=== PATIENT | female | born 1995 | race Caucasian/White ===

== ENCOUNTER 2023-07-19 13:35 | Outpatient (AMB) | payer OTHER, SELFPAY ==
--- NOTE | 2023-07-19 13:40 | MHC.PC.OV ---
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: No Accompanied by: Self / Same As Patient Allergies No Known Allergies Allergy (Verified 07/19/23 14:30) Medication List - Last Reconciled 07/19/23 by Robinson Banerjee MD No Known Home Meds Tobacco use date assessed: 07/19/23 Dental Screening Dental Screen Date: 07/19/23 Did you have a dental visit in the last 12 months?: Yes Did you have a dental problem in the last 6 months where you did not have access to dental care?: No Was dental information given to patient?: Patient has dentist HPI Pipe Turner Request PE / Anxiety HPI Details Patient comes in today for her annual physical examination and to establish care - is a new patient to the practice States that she has a history of anxiety and was on some Rx in the past; is requesting for a referral to psychiatry so she can get back on some Rx for her anxiety - recalls that she was seeing a psychiatry Rx prescriber before Relates that she has been off her psychiatry meds for a while Recalls that she was on Sertraline and Hydroxyzine in the past but they did not really help with her symptoms and she stopped taking her Rx when she got a few years ago Relates (+) strong family Hx of anxiety and psychiatric issues (schizophrenia, bipolar depression) She has also noticed some dark spots on her skin all over but notes that they are especially more prominent on her hands/fingers and toes - would like to get checked out for skin cancer by dermatology, as she also reports (+) family Hx of skin cancer She denies any headaches or dizziness Denies any chest pains, no SOB No nausea/vomiting, no abdominal pain No change in bowel habits noted Denies any acute urinary symptoms PFSH Medical History (Updated 08/23/23 @ 01:37 by Robinson Banerjee MD) Allergic rhinitis Morbid obesity with BMI of 50.0-59.9, adult Anxiety Surgical History (Updated 08/23/23 @ 01:28 by Robinson Banerjee MD) No pertinent past surgical history Family History Other Brain cancer Diabetes FH: mental illness Hypertension Skin cancer Substance abuse Social History Housing: House Patient Tobacco Use Status: Former Tobacco user e-Cigarette/Vaping Use: Currently Using service: No Current occupational status: employed and unemployed Current occupational exposures/hazards: No Cognitive needs: No Hearing needs: No Vision needs: No Questionnaire PHQ-9 Over the last 2 weeks, how often have you been bothered by any of the following problems? 1. Little interest or pleasure in doing things: several days 2. Feeling down, depressed, or hopeless: several days 3. Trouble falling or staying asleep, or sleeping too much: nearly every day 4. Feeling tired or having little energy: nearly every day 5. Poor appetite or overeating: not at all 6. Feeling bad about yourself - or that you are a failure or have let yourself or your family down: nearly every day 7. Trouble concentrating on things, such as reading the newspaper or watching television: nearly every day 8. Moving or speaking so slowly that other people could have noticed. Or the opposite - being so fidgety or restless that you have been moving around a lot more than usual: nearly every day 9. Thoughts that you would be better off or of hurting yourself in some way: not at all Total score: 17 Depression Screening Interpretation: Positive Depression Screening Follow-up: Existing condition, New Medication prescribed, Community Mental Health Worker F/U and Follow-up Visit Requested Depression Screening Done: Yes [id number] - PHQ-9 Billing: Yes Source: Developed by Drs. Boris Graf, Manisha Cardenas, Devon Cobian and colleagues, with an educational bambi from [employer]. Thrive Questionnaire Date Thrive assessed: 07/19/23 I am a: Patient What is your living situation today?: I have a steady place to live Within the past 12 months, did the food you bought not last and you didn't have the money to get more?: Never true Within the past 12 months, did you worry whether your food would run out before you got money to buy more?: Never true Do you have trouble paying for medicines?: No Do you have trouble getting transportation to medical appointments?: No Do you have trouble paying your heating and electricity bill?: No Do you have trouble taking care of your child, family member or friend?: No Do you have trouble with day-to-day activities such as bathing, preparing meals, shopping, managing finances, etc.?: No Are you currently unemployed and looking for a job?: No Are you interested in more education?: No Please select the resources that you would like help with: None Currently or been in a relationship where the following occur: no concerns reported AUDIT C Alcohol Use Questionnaire (AUDIT-C) 1. How often do you have a drink containing alcohol?: Never 3. How often do you have six or more drinks on one occasion?: Never Total Score: 0 Score Reviewed/Action Taken: Yes TAWNY-7 AMB Questionnaire TAWNY-7 Date TAWNY - 7 assessed: 07/19/23 Feeling nervous, anxious, or on edge: 3 = Nearly every day Not being able to stop or control worryin = Not at all Worrying too much about different things: 0 = Not at all Trouble relaxin = Nearly every day Being so restless that it is hard to sit still: 3 = Nearly every day Becoming easily annoyed or irritable: 3 = Nearly every day Feeling afraid as if something awful might happen: 0 = Not at all Total TAWNY-7 score (0-4 normal; 5-9 mild; 10-14 moderate; 15-21 severe): 12 Source: Developed by Drs. Boris Graf, Manisha Cardenas, Devon Cobian and colleagues, with an educational bambi from [employer]. Review of Systems Const Denies chills, Denies fatigue, Denies fever(s), Denies headache(s) and Denies malaise Eyes Denies blurry vision, Denies change in vision, Denies irritation and Denies itchy eyes ENT Denies dysphagia, Denies dizziness, Denies otalgia, Denies headache(s), Denies nasal congestion, Reports nasal discharge (occasional, clear), Denies neck pain, Denies odynophagia, Denies sinus pain and Denies sore throat Card Denies chest pain, Denies rapid heart rate, Denies irregular heart rhythm, Denies palpitations and Denies dyspnea Resp Denies chest congestion, Denies cough, Denies dyspnea and Denies wheezing GI Denies abdominal pain, Denies bloating, Denies constipation, Denies dysphagia, Denies heartburn, Denies diarrhea, Denies nausea, Denies odynophagia and Denies vomiting Denies hematuria, Denies urinary frequency, Denies dysuria, Denies urinary incontinence and Denies urinary urgency Musc Denies back pain, Denies arthralgias, Denies joint swelling, Denies muscle weakness and Denies neck pain Skin/Breast Denies breast pain, Denies breast mass, Denies change in pigmentation, Reports lesions ((+) multiple scattered dark lesions on her skin - see HPI), Denies rash and Denies unusual bruising Neuro Denies dizziness, Denies headache(s) and Denies paresthesias Psych Reports anxiety (increasing) and Reports depression Endo Denies fatigue and Denies palpitations Amado/Lymph Denies easy bruising Aller/Immun Denies itchy eyes, Reports seasonal rhinorrhea and Denies wheezing Physical exam (Primary Care) Vital Signs: Last Vital Signs Pulse 106 H 07/19/23 13:42 BP 132/88 07/19/23 13:42 Pulse Ox 98 07/19/23 13:42 Oxygen Delivery Method Room Air 07/19/23 13:42 BMI result Body Mass Index 57.9 Tobacco/Smoking Status: Tobacco use Status Tobacco use date assessed 07/19/23 07/19/23 13:56 Patient Tobacco Use Status Former Tobacco user 07/19/23 13:56 e-Cigarette/Vaping Use Currently Using 07/19/23 13:56 PHQ-9: PHQ-9 Score PHQ-9: Total score 17 07/19/23 14:32 Depression Screening Interpretation: Positive Depression Screening Follow-up: Existing condition, New Medication prescribed, Community Mental Health Worker F/U and Follow-up Visit Requested Thrive Assessment: Date of Thrive Assessment Date Thrive assessed 07/19/23 07/19/23 13:56 Currently or been in a relationship where the following occur: no concerns reported Const General: no acute distress, alert and awake Orientation/consciousness: patient oriented x3 HENMT Head: Yes normocephalic and Yes atraumatic Ears: external ears normal, TM's normal bilaterally and EAC's normal General nose exam: No nasal discharge present Face and sinus: Yes normal facial exam and Yes sinuses nontender Teeth and gingiva: dentition normal Throat: Yes posterior oropharynx normal and Yes tonsils normal (no TP congestion) Eyes Eyelids: Yes eyelids normal Conjunctivae: conjunctivae normal Pupils: Equal, round and reactive pupils present EOM: EOMs intact bilaterally Neck Neck: Yes no lymphadenopathy and Yes supple Thyroid: Thyroid normal Resp Auscultation: clear to auscultation bilaterally, no rales and no wheezes Cardio Rate: regular rate Rhythm: regular rhythm Heart sounds: no murmurs GI Palpation (GI): Soft to palpation, nontender and No hepatosplenomegaly present Auscultation: normal bowel sounds General: Yes no CVA tenderness Back/Spine/Pelvis Back: no CVA tenderness Thoracic/Lumbar Spine: thoracic and lumbar spine normal to inspection Skin Other: (+) multiple scattered hyperpigmented skin lesions that are more prominent/numerous on her hands and digits Rashes: no rashes Neuro General: patient oriented x3, moves all extremities, no focal motor deficits and CN's II-XI intact bilaterally Cranial nerves: Yes Equal, round and reactive pupils present Cognition (Neuro): normal cognition Gait exam (Neuro): Normal gait present Extrem General: Yes no clubbing, cyanosis or edema Assessment and Plan Assessment & Plan (1) Annual physical exam: Code(s): Z00.00 - Encounter for general adult medical examination without abnormal findings Plan: Check labs (2) Allergic rhinitis: Code(s): J30.9 - Allergic rhinitis, unspecified Qualifiers: Allergic rhinitis trigger: unspecified Allergic rhinitis seasonality: unspecified Qualified Code(s): J30.9 - Allergic rhinitis, unspecified Plan: Will start her on Cetirizine 10 mg QD PRN (3) Hyperpigmented skin lesion: Code(s): L81.9 - Disorder of pigmentation, unspecified Plan: Will refer her to dermatology for further evaluation and management (4) Anxiety: Code(s): F41.9 - Anxiety disorder, unspecified Plan: Will refer her to psychiatry for further evaluation and management Will start her in the meantime on a trial of Bupropion XL 150 mg QD - advised that this may help in the meantime as we currently do not know how long it will take before psychiatry can see her and start prescribing and managing her Rx (5) Morbid obesity with BMI of 50.0-59.9, adult: Code(s): E66.01 - Morbid (severe) obesity due to excess calories; Z68.43 - Body mass index [BMI] 50.0-59.9, adult Plan: Discussed diet/exercise as tolerated/lose weight (6) Cervical cancer screening: Code(s): Z12.4 - Encounter for screening for malignant neoplasm of cervix Plan: Will refer her to OB-Exhaust Worker for her annual pap smear and string studies director exam, as it has been a few years now since she's had her annual exam done Plan Follow up in 4 month Orders: Orders Comprehensive Met. Panel 07/19/23 Z00.00 - Encounter for general adult medical examination without abnormal findings, E66.01 - Morbid (severe) obesity due to excess calories, Z68.43 - Body mass index [BMI] 50.0-59.9, adult UA CC w/rflx Micro + Cult 07/19/23 R30.0 - Dysuria, Z00.00 - Encounter for general adult medical examination without abnormal findings, E66.01 - Morbid (severe) obesity due to excess calories, Z68.43 - Body mass index [BMI] 50.0-59.9, adult Vitamin D 25-OH Total 07/19/23 E55.9 - Vitamin D deficiency, unspecified, Z00.00 - Encounter for general adult medical examination without abnormal findings, E66.01 - Morbid (severe) obesity due to excess calories, Z68.43 - Body mass index [BMI] 50.0-59.9, adult Complete Blood Count Auto Diff 07/19/23 Z00.00 - Encounter for general adult medical examination without abnormal findings, E66.01 - Morbid (severe) obesity due to excess calories, Z68.43 - Body mass index [BMI] 50.0-59.9, adult TSH reflex Free T4 07/19/23 Z00.00 - Encounter for general adult medical examination without abnormal findings, E66.01 - Morbid (severe) obesity due to excess calories, Z68.43 - Body mass index [BMI] 50.0-59.9, adult Referrals DIRECTOR CARDIAC Referral Z12.4 - Encounter for screening for malignant neoplasm of cervix Psychiatry Referral F41.9 - Anxiety disorder, unspecified Dermatology Referral L81.9 - Disorder of pigmentation, unspecified Medications: New bupropion HCl (Wellbutrin XL) 150 mg PO QAM 30 tabs 3RF 30 days cetirizine 10 mg PO DAILY PRN 90 tabs 3RF allergy symptoms 90 days Coding Level of Care Code New Pt Prev Care 18-39yr([address]211 Diagnoses Annual physical exam Z00.00 Allergic rhinitis, unspecified seasonality, unspecified trigger J30.9 Allergic rhinitis trigger: unspecified Allergic rhinitis seasonality: unspecified Hyperpigmented skin lesion L81.9 Anxiety F41.9 Morbid obesity with BMI of 50.0-59.9, adult E66.01; Z68.43 Cervical cancer screening Z12.4
[2023-07-19 13:42] VITALS: BP 132/88; PULSE 106; O2SAT 98; BMI 57.9
== END 2023-07-19 14:45 | disposition home or self-care (01) ==
PROVIDERS: PCP Internal Medicine; Visit Provider Internal Medicine
DX: Z00.00 Encounter for general adult medical examination without abnormal findings (principal); F41.9 Anxiety disorder, unspecified; E66.01 Morbid (severe) obesity due to excess calories; Z68.43 Body mass index [BMI] 50.0-59.9, adult
CPT/HCPCS: 99385

== ENCOUNTER 2023-07-19 14:51 | Outpatient (REF) | payer OTHER, SELFPAY ==
[2023-07-19 15:11] LABS: MANUAL DIFF FLAG NO
[2023-07-19 15:16] LABS: Basophils Percent Auto 0.2 % (0-2); Eosinophils Absolute Auto 0.4 X10*3/uL (0.0-0.4); Eosinophils Percent Auto 4.7 % (0-4); Hematocrit 40.9 % (37.0-47.0); Hemoglobin 13.5 g/dl (12.0-16.0); Imm Gran Abs Auto 0.02 X10*3/uL (0.00-0.03); Imm Gran Pct Auto 0.2 % (0.0-0.4); Lymphocytes Absolute Auto 2.3 X10*3/uL (1.2-4.9); Lymphocytes Percent Auto 27.7 % (20-40); Mean Corpuscular Hemoglobin 26.9 pg (27.0-33.0); Mean Corpuscular Volume 81.5 fL (80.0-98.0); Mean Platelet Volume 9.8 fL (9.4-12.3); Monocytes Absolute Auto 0.3 X10*3/uL (0.1-1.2); Monocytes Percent Auto 3.8 % (2-11); Neutrophils Absolute Auto 5.3 x10*3/uL (2.0-8.3); Neutrophils Percent Auto 63.4 % (45-73); Platelet Count 211 X10*3/uL (160-400); Red Blood Count 5.02 X10*6/uL (4.20-5.50); Red Cell Distribution Width 14.4 % (11.0-16.0); White Blood Count 8.4 X10*3/uL (4.8-10.8)
[2023-07-19 15:44] LABS: Alanine Aminotransferase 42 U/L (0-31); Albumin Level 4.3 g/dL (3.5-5.0); Alkaline Phosphatase 55 U/L (39-117); Anion Gap 12 (12-20); Aspartate Amino Transferase 19 U/L (5-31); Bilirubin Total 0.7 mg/dL (0.0-1.0); Blood Urea Nitrogen 11 mg/dL (9-16); Calcium 9.8 mg/dL (8.4-10.2); Carbon Dioxide 25 mmol/L (22-29); Chloride 105 mmol/L (96-108); Estimated Glomerular Filt Rate > 60; Glucose Random 111 mg/dL (60-115); Potassium 4.1 mmol/L (3.3-5.1); Sodium 138 mmol/L (135-145); Total Protein 7.2 g/dL (6.5-8.0)
[2023-07-19 15:58] LABS: TSH reflex Free T4 3.79 uIU/mL (0.32-4.0); Vitamin D 25-OH Total 19.9 ng/mL (>30)
[2023-07-19 17:20] LABS: Appearance Urine Cloudy; Color Urine Yellow; Glucose Urine UA Negative (Negative); Leukocyte Esterase Urine Moderate (2+) (Negative); Nitrite Urine Negative (Negative); UMIC TRIGGER UACC YES; Urine Blood Negative (Negative); Urine Ketones Trace mg/dL (Negative); Urine Protein Negative (Neg-Trace)
[2023-07-19 18:03] LABS: Bacteria Urine 4+ (None Seen); Hyaline Casts Urine 0-2 /LPF (0-2); RBC Urine 0-2 /HPF (0-2); UACC Culture Trigger YES; WBC Urine 21-50 /HPF (0-5)
== END 2023-07-19 14:52 | disposition home or self-care (01) ==
LOC: HO.LAB 14:51
PROVIDERS: PCP Internal Medicine; Visit Provider Internal Medicine
DX: Z00.00 Encounter for general adult medical examination without abnormal findings (principal); E66.01 Morbid (severe) obesity due to excess calories; E55.9 Vitamin D deficiency, unspecified; Z68.43 Body mass index [BMI] 50.0-59.9, adult
CPT/HCPCS: 36415; 80053; 81001; 82306; 84443; 85025; 87086

== ENCOUNTER 2023-10-21 15:23 | Outpatient (REF) | payer OTHER, SELFPAY ==
[2023-10-28 23:29] LABS: HPV mRNA E6/E7 rflx Not Detected (Not Detected)
== END 2023-10-21 15:24 | disposition home or self-care (01) ==
LOC: HO.LNP 15:23
PROVIDERS: PCP Internal Medicine; Visit Provider Obstetrics & Gynecology
DX: Z01.419 Encounter for gynecological examination (general) (routine) without abnormal findings (principal); Z11.3 Encounter for screening for infections with a predominantly sexual mode of transmission; Z11.51 Encounter for screening for human papillomavirus (HPV); E66.01 Morbid (severe) obesity due to excess calories; Z68.43 Body mass index [BMI] 50.0-59.9, adult; Z71.3 Dietary counseling and surveillance
CPT/HCPCS: 87624; 88142; 99385

== ENCOUNTER 2023-10-21 15:23 | Outpatient (AMB) | payer OTHER, SELFPAY ==
--- NOTE | 2023-10-21 15:29 | MHC.OFFVIS ---
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 No complaints. Last Pap was within normal few years ago [facility] Medical History Allergic rhinitis Morbid obesity with BMI of 50.0-59.9, adult Anxiety Surgical History History of lumbar laminectomy for spinal cord decompression Hx of tonsillectomy No pertinent past surgical history Family History Other Brain cancer Diabetes FH: mental illness Hypertension Skin cancer Substance abuse Social History Housing: House Patient Tobacco Use Status: Former Tobacco user e-Cigarette/Vaping Use: Currently Using Substance Use Type: Marijuana service: No Current occupational status: employed and unemployed Current occupational exposures/hazards: No Cognitive needs: No Hearing needs: No Vision needs: No Female Reproductive History Menstrual Age of Menarche: 10 Duration of menses: 6-7 days Date of last menstrual period: 10/10/23 control method: progestin IUCD Total pregnancies: 1 Full term: 1 Number of Living Children: 1 Review of Systems Const All systems reviewed & are unremarkable except as noted in HPI and below Card Reports as per HPI Resp Reports as per HPI GI Reports as per HPI and Reports no additional complaints Reports as per HPI Physical Exam Vital Signs: BMI result Body Mass Index 53.7 Const General: cooperative, healthy appearing and comfortable Chest Chest palpation & inspection: normal inspection of the chest and normal palpation of entire chest wall Breast/axilla inspection: normal inspection of the breasts and normal inspection of the axillae Breast/axilla palpation: normal palpation of the breasts, normal palpation of the axillae and no axillary lymphadenopathy Resp Effort & Inspection: normal respiratory effort Auscultation: clear to auscultation bilaterally Percussion: percussion normal Cardio Palpation: normal PMI Rate: regular rate Rhythm: regular rhythm Heart sounds: no murmurs and no rubs Peripheral pulses: Peripheral pulses 2+ throughout GI Inspection: Yes normal to inspection Palpation (GI): Soft to palpation, nontender, no guarding, not rigid and No hepatosplenomegaly present Percussion: Yes normal to percussion Auscultation: normal bowel sounds Rectal Exam - Female: deferred General: Yes bladder normal to palpation External Female Exam: No lesion Speculum Exam - Vagina: normal appearance of the vagina, normal palpation, normal vaginal discharge and not erythematous Speculum Exam - Cervix: normal appearance of the cervix, normal palpation and Other cervical findings present (IUD string seen) Bimanual exam- vagina & uterus: normal bimanual exam, normal palpation, uterine size normal, bladder normal to palpation, consistency normal and normal palpation Bimanual Exam- Adnexa, other: normal adnexae, no masses and no tenderness Assessment & Plan Assessment & Plan (1) Well woman exam: Code(s): Z01.419 - Encounter for gynecological examination (general) (routine) without abnormal findings Plan: Co testing taken. Counseled the patient about the recommended dietary allowance of 1000 mg of Calcium & 600 IU of vitamin D. The patient was instructed to perform monthly self-breast exams , to call for any changes in menstrual patterns and to schedule an annual exam in a year; all questions answered and the patient verbalized understanding. Coding Level of Care Code New Pt Prev Care 18-39yr([id number] Diagnoses Well woman exam Z01.419
[2023-10-21 15:30] VITALS: BP 120/70; BMI 53.7
== END 2023-10-21 15:58 | disposition home or self-care (01) ==
LOC: HO.HWS 15:23
PROVIDERS: PCP Internal Medicine; Visit Provider Obstetrics & Gynecology
DX: Z01.419 Encounter for gynecological examination (general) (routine) without abnormal findings (principal)
CPT/HCPCS: 99385

== ENCOUNTER 2023-11-17 15:28 | Outpatient (AMB) | payer OTHER, SELFPAY ==
--- NOTE | 2023-11-17 15:30 | MHC.OFFVIS ---
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 Required: No Information Interpreted: non-clinical & clinical Motor Vehicle Licence Examiner: Motor Vehicle Licence Examiner Present (Isa PADRON) Accompanied by: Self / Same As Patient Allergies No Known Allergies Allergy (Verified 11/17/23 15:33) Is last menstrual period known: No (mirena) HPI Comments Details: Presenting complaining of vulvovaginal discharge associated with vulvar itching PFSH Medical History Allergic rhinitis Morbid obesity with BMI of 50.0-59.9, adult Anxiety Surgical History History of lumbar laminectomy for spinal cord decompression Hx of tonsillectomy No pertinent past surgical history Family History Other Brain cancer Diabetes FH: mental illness Hypertension Skin cancer Substance abuse Social History Housing: House Patient Tobacco Use Status: Former Tobacco user e-Cigarette/Vaping Use: Currently Using Substance Use Type: Marijuana service: No Current occupational status: employed and unemployed Current occupational exposures/hazards: No Cognitive needs: No Hearing needs: No Vision needs: No Female Reproductive History Menstrual Age of Menarche: 10 Review of Systems Const All systems reviewed & are unremarkable except as noted in HPI and below Physical Exam Vital Signs: BMI result Body Mass Index 53.4 General: Yes no CVA tenderness External Female Exam: normal external appearance and normal appearance of the urethra Speculum Exam - Vagina: normal appearance of the vagina, normal palpation, no lesions and no masses Speculum Exam - Cervix: normal appearance of the cervix, normal palpation, no lesions, no masses and nontender Bimanual exam- vagina & uterus: normal bimanual exam, normal palpation, uterine size normal, normal palpation, uterine shape normal, No Cervical tenderness present and non-tender Bimanual Exam- Adnexa, other: normal adnexae Back/Spine/Pelvis Back: no CVA tenderness Assessment & Plan Assessment & Plan (1) Vulvovaginitis: Code(s): N76.0 - Acute vaginitis Category: Medical Plan: GC/CT, Bacterial Vaginosis panel taken, Terazol 0.8% q.h.s. for 3 days and Lotrisone cream b.i.d. for 5 days was sent to the patient's pharmacy. The patient was instructed to call if symptoms don't improve in 48 hours. Orders: Orders CT NG by PCR Today N89.8 - Other specified noninflammatory disorders of vagina Bacterial Vaginosis Panel Today N89.8 - Other specified noninflammatory disorders of vagina Medications: New terconazole 0.8% 1 appful vaginal BEDTIME 3 days 20 grams 0RF clotrimazole-betamethasone 1-0.05 % 1 appl topical BID 5 days 45 grams 0RF Coding Level of Care Code Est Pt Level 3 (30236) Diagnoses Vulvovaginitis N76.0
[2023-11-17 15:31] VITALS: BMI 53.4
== END 2023-11-17 15:54 | disposition home or self-care (01) ==
PROVIDERS: PCP Internal Medicine; Visit Provider Obstetrics & Gynecology
DX: N76.0 Acute vaginitis (principal)
CPT/HCPCS: 99213

== ENCOUNTER 2023-11-17 15:28 | Outpatient (REF) | payer OTHER, SELFPAY ==
[2023-11-18 18:24] LABS: CT PCR NOT DETECTED (Not Detect.); NG PCR NOT DETECTED (Not Detect.)
[2023-11-19 10:59] LABS: BV Int Neg Control Negative (Negative); BV Int Pos Control Positive (Positive)
== END 2023-11-17 15:29 | disposition home or self-care (01) ==
LOC: HO.LNP 15:28
PROVIDERS: PCP Internal Medicine; Visit Provider Obstetrics & Gynecology
DX: N76.0 Acute vaginitis (principal)
CPT/HCPCS: 0353U; 87480; 87510; 87660; 99212

== ENCOUNTER 2023-11-22 15:49 | Outpatient (AMB) | payer OTHER, SELFPAY ==
--- NOTE | 2023-11-22 16:06 | A.OFFPC_ITS ---
Vital Signs 11/22/23 16:07 Height 5 ft 7.5 in Weight 330 lb 11.094 oz BMI 51.0 BP 110/68 Blood Pressure Location Lt brachial Position Sitting Pulse 69 Pulse Source Pulse Oximeter Pulse Oximetry (%) 99 Oxygen Delivery Method Room Air Intake Visit Reasons: anxiety Delivery Recruiter Required: No Accompanied by: Self / Same As Patient Allergies No Known Allergies Allergy (Verified 11/22/23 16:36) Medication List - Last Reconciled 11/22/23 by Robinson Banerjee MD bupropion HCl XL (Wellbutrin XL) 150 mg PO QAM 30 days cetirizine 10 mg PO DAILY PRN 90 days clotrimazole-betamethasone 1-0.05 % 1 appl topical BID 5 days levonorgestrel (Mirena) intrauterine saffron extract 2 to 4 tablets orally daily; terconazole 0.8% 1 appful vaginal BEDTIME 3 days Tobacco use date assessed: 07/19/23 Dental Screening Dental Screen Date: 07/19/23 HPI anxiety HPI Details Patient comes in today for her follow up visit Has been taking Saffron extract for weight loss - has lost about 45 pounds since last visit PFSH Medical History Allergic rhinitis Morbid obesity with BMI of 50.0-59.9, adult Anxiety Surgical History History of lumbar laminectomy for spinal cord decompression Hx of tonsillectomy No pertinent past surgical history Family History Other Brain cancer Diabetes FH: mental illness Hypertension Skin cancer Substance abuse Social History Housing: House Patient Tobacco Use Status: Former Tobacco user e-Cigarette/Vaping Use: Currently Using Substance Use Type: Marijuana service: No Current occupational status: employed and unemployed Current occupational exposures/hazards: No Cognitive needs: No Hearing needs: No Vision needs: No Female Reproductive History Menstrual Age of Menarche: 10 Questionnaire Thrive Questionnaire Date Thrive assessed: 07/19/23 TAWNY-7 AMB Questionnaire TAWNY-7 Date TAWNY - 7 assessed: 07/19/23 Source: Developed by Drs. Boris Graf, Manisha Cardenas, Devon Cobian and colleagues, with an educational bambi from [employer]. Physical exam (Primary Care) Vital Signs: Last Vital Signs Pulse 69 11/22/23 16:07 BP 110/68 11/22/23 16:07 Pulse Ox 99 11/22/23 16:07 Oxygen Delivery Method Room Air 11/22/23 16:07 BMI result Body Mass Index 51.0 Tobacco/Smoking Status: Tobacco use Status Tobacco use date assessed 07/19/23 11/22/23 16:07 Patient Tobacco Use Status Former Tobacco user 11/22/23 16:07 e-Cigarette/Vaping Use Currently Using 11/22/23 16:07 Thrive Assessment: Date of Thrive Assessment Date Thrive assessed 07/19/23 11/22/23 16:07 Results Reviewed Results Reviewed: Laboratory Tests 07/19/23 07/19/23 15:07 15:09 WBC 8.4 Hgb 13.5 Hct 40.9 Plt Count 211 Sodium 138 Potassium 4.1 Creatinine 0.82 Estimated GFR > 60 Random Glucose 111 Calcium 9.8 AST 19 ALT 42 H 25-OH Vitamin D Total 19.9 L TSH 3.79 Ur Specific [place] 1.020 Urine Protein Negative Urine Glucose (UA) Negative Urine Blood Negative Assessment and Plan Assessment & Plan Medications: New cholecalciferol (vitamin D3) 50 mcg PO DAILY 90 days 90 caps 3RF E55.9 - Vitamin D deficiency, unspecified On Hold bupropion HCl XL (Wellbutrin XL) Hold Comment: Doctor's Order 150 mg PO QAM 30 days 30 tabs 3RF Coding
--- NOTE | 2023-11-22 16:06 | MHC.PC.OV ---
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: No Accompanied by: Self / Same As Patient Allergies prednisone Allergy (Intermediate, Verified 08/25/24 17:00) Itching Medication List - Last Reconciled 11/22/23 by Robinson Banerjee MD bupropion HCl XL (Wellbutrin XL) 150 mg PO QAM 30 days cetirizine 10 mg PO DAILY PRN 90 days clotrimazole-betamethasone 1-0.05 % 1 appl topical BID 5 days levonorgestrel (Mirena) intrauterine saffron extract 2 to 4 tablets orally daily; terconazole 0.8% 1 appful vaginal BEDTIME 3 days Tobacco use date assessed: 07/19/23 Dental Screening Dental Screen Date: 07/19/23 HPI anxiety HPI Details Patient comes in today for her follow up visit States that she feels okay Admits that she did not take her Bupropion XL Rx and would like to wait until she sees Psychiatry before taking any other medications - relates having problems with multiple medications in the past, either due to intolerance or ineffectiveness She denies any headaches or dizziness Denies any chest pains, no shortness of breath No nausea/vomiting, no abdominal pain No change in bowel habits noted States that she has been taking some Saffron extract for weight loss recently and has already lost about 45 pounds since her last visit She had her follow-up labs done back in July 2023 and she would like to know how she did on these [facility] Medical History (Updated 08/26/24 @ 05:43 by Robinson Banerjee MD) ADHD (attention deficit hyperactivity disorder), combined type Vitamin D deficiency Reactive airway disease Morbid obesity with BMI of 45.0-49.9, adult Allergic rhinitis Anxiety Surgical History History of lumbar laminectomy for spinal cord decompression Hx of tonsillectomy No pertinent past surgical history Family History Father FH: mental illness Brother FH: mental illness Other Brain cancer Diabetes Hypertension Skin cancer Substance abuse Social History Housing: House Alcohol intake: never Patient Tobacco Use Status: Former Tobacco user e-Cigarette/Vaping Use: Currently Using Second Hand Smoke Exposure: Yes Substance Use Type: Marijuana service: No Current occupational status: employed and unemployed Current occupational exposures/hazards: No Cognitive needs: No Hearing needs: No Vision needs: No Female Reproductive History Menstrual Age of Menarche: 10 Questionnaire PHQ-9 Over the last 2 weeks, how often have you been bothered by any of the following problems? Depression Screening Interpretation: Positive Depression Screening Follow-up: Existing condition and In treatment Depression Screening Done: Yes Source: Developed by Drs. Boris Graf, Manisha Cardenas, Devon Cobian and colleagues, with an educational bambi from [employer]. Thrive Questionnaire Date Thrive assessed: 07/19/23 THRIVE Score: 0 TAWNY-7 AMB Questionnaire TAWNY-7 Date TAWNY - 7 assessed: 07/19/23 Source: Developed by Drs. Boris Graf, Manisha Cardenas, Devon Cobian and colleagues, with an educational bambi from [employer]. Review of Systems Const Denies chills, Denies fatigue, Denies fever(s) and Denies headache(s) ENT Denies dysphagia, Denies dizziness, Denies otalgia, Denies headache(s), Denies neck pain, Denies odynophagia and Denies sore throat Card Denies chest pain, Denies irregular heart rhythm, Denies palpitations and Denies dyspnea Resp Denies chest congestion, Denies cough and Denies dyspnea GI Denies abdominal pain, Denies constipation, Denies dysphagia, Denies heartburn, Denies diarrhea, Denies nausea, Denies odynophagia and Denies vomiting Denies urinary frequency, Denies dysuria and Denies urinary urgency Musc Denies back pain, Denies arthralgias and Denies neck pain Skin/Breast Denies rash Neuro Denies dizziness, Denies headache(s) and Denies paresthesias Psych Reports anxiety and Reports depression Endo Denies fatigue and Denies palpitations [place]/Lymph Denies easy bruising Aller/Immun Reports seasonal rhinorrhea Physical exam (Primary Care) Vital Signs: Last Vital Signs Pulse 69 11/22/23 16:07 BP 110/68 11/22/23 16:07 Pulse Ox 99 11/22/23 16:07 Oxygen Delivery Method Room Air 11/22/23 16:07 BMI result Body Mass Index 51.0 Tobacco/Smoking Status: Tobacco use Status Tobacco use date assessed 07/19/23 11/22/23 16:07 Patient Tobacco Use Status Former Tobacco user 11/22/23 16:07 e-Cigarette/Vaping Use Currently Using 11/22/23 16:07 Depression Screening Interpretation: Positive Depression Screening Follow-up: Existing condition and In treatment Thrive Assessment: Date of Thrive Assessment Date Thrive assessed 07/19/23 11/22/23 16:07 Const General: no acute distress and alert HENMT Ears: TM's normal bilaterally and EAC's normal Throat: Yes posterior oropharynx normal and Yes tonsils normal (no TP congestion) Neck Neck: Yes no lymphadenopathy and Yes supple Thyroid: Thyroid normal Resp Auscultation: clear to auscultation bilaterally, no rales and no wheezes Cardio Rate: regular rate Rhythm: regular rhythm Heart sounds: no murmurs GI Palpation (GI): Soft to palpation and nontender Auscultation: normal bowel sounds General: Yes no CVA tenderness Back/Spine/Pelvis Back: no CVA tenderness Thoracic/Lumbar Spine: thoracic and lumbar spine normal to inspection Skin Rashes: no rashes Extrem General: Yes no clubbing, cyanosis or edema Results Reviewed Results Reviewed: Laboratory Tests 07/19/23 07/19/23 15:07 15:09 WBC 8.4 Hgb 13.5 Hct 40.9 Plt Count 211 Sodium 138 Potassium 4.1 Creatinine 0.82 Estimated GFR > 60 Random Glucose 111 Calcium 9.8 AST 19 ALT 42 H 25-OH Vitamin D Total 19.9 L TSH 3.79 Ur Specific [place] 1.020 Urine Protein Negative Urine Glucose (UA) Negative Urine Blood Negative Coding Level of Care Code Est Pt Level 4 (54302) Diagnoses Allergic rhinitis, unspecified seasonality, unspecified trigger J30.9 Allergic rhinitis trigger: unspecified Allergic rhinitis seasonality: unspecified Vitamin D deficiency E55.9 Anxiety F41.9 Morbid obesity with BMI of 50.0-59.9, adult E66.01; Z68.43
[2023-11-22 16:07] VITALS: BP 110/68; PULSE 69; O2SAT 99; BMI 51.0
== END 2023-11-22 16:47 | disposition home or self-care (01) ==
PROVIDERS: PCP Internal Medicine; Visit Provider Internal Medicine
DX: J30.9 Allergic rhinitis, unspecified (principal); E55.9 Vitamin D deficiency, unspecified; F41.9 Anxiety disorder, unspecified; E66.01 Morbid (severe) obesity due to excess calories; Z68.43 Body mass index [BMI] 50.0-59.9, adult
CPT/HCPCS: 99499

== ENCOUNTER 2023-12-08 15:26 | Outpatient (AMB) | payer OTHER, SELFPAY ==
--- NOTE | 2023-12-08 15:26 | MHC.PC.OV ---
Vital Signs 12/08/23 15:28 Height 5 ft 7.5 in Weight 317 lb BMI 48.9 BP 110/72 Blood Pressure Location Rt brachial Position Sitting Pulse 70 Pulse Source Pulse Oximeter Pulse Oximetry (%) 97 Oxygen Delivery Method Room Air Intake Visit Reasons: Abdominal Mild Discomfort Intake Note: Patient is here to follow up on Mild Abdominal discomfort and requesting for referral to GI. Automobile Parker Required: No Mason Foreman/Superintendant: Not Required per policy Accompanied by: Self / Same As Patient Allergies prednisone Allergy (Intermediate, Verified 12/09/23 05:22) Itching Medication List - Last Reconciled 12/09/23 by Sandoval Haynes MD cetirizine 10 mg PO DAILY PRN 90 days cholecalciferol (vitamin D3) 50 mcg PO DAILY 90 days clotrimazole-betamethasone 1-0.05 % 1 appl topical BID 5 days levonorgestrel (Mirena) intrauterine saffron extract 2 to 4 tablets orally daily; terconazole 0.8% 1 appful vaginal BEDTIME 3 days Tobacco use date assessed: 12/08/23 Dental Screening Dental Screen Date: 07/19/23 HPI Abdominal Mild Discomfort HPI Details 28 yr old female presents to the office for a sick visit. She has been experiencing pain in the left side of the abdomen for the past few days. Worse when she sleeps on the left side of the body. The pain is dull and constant, but on occasions it sharpens. No vomiting or nausea. She has been trying to lose weight and has been constipated in the last week. She is worried about a possible hernia. [facility] Medical History Allergic rhinitis Morbid obesity with BMI of 50.0-59.9, adult Anxiety Surgical History History of lumbar laminectomy for spinal cord decompression Hx of tonsillectomy No pertinent past surgical history Family History Other Brain cancer Diabetes FH: mental illness Hypertension Skin cancer Substance abuse Social History Housing: House Alcohol intake: never Patient Tobacco Use Status: Former Tobacco user e-Cigarette/Vaping Use: Currently Using Frequency of e-Cigarette/Vaping Use: sometimes (THC) Second Hand Smoke Exposure: Yes Substance Use Type: Marijuana service: No Current occupational status: employed and unemployed Current occupational exposures/hazards: No Cognitive needs: No Hearing needs: No Vision needs: No Female Reproductive History Menstrual Age of Menarche: 10 Questionnaire Thrive Questionnaire Date Thrive assessed: 07/19/23 TAWNY-7 AMB Questionnaire TAWNY-7 Date TAWNY - 7 assessed: 07/19/23 Source: Developed by Drs. Brois Graf, Manisha Cardenas, Devon Cobian and colleagues, with an educational bambi from [employer]. Physical exam (Primary Care) Vital Signs: Last Vital Signs Pulse 70 12/08/23 15:28 BP 110/72 12/08/23 15:28 Pulse Ox 97 12/08/23 15:28 Oxygen Delivery Method Room Air 12/08/23 15:28 Care Plan Goal for BP management: BP is in range BMI result Body Mass Index 48.9 BMI Assessment/Plan discussion: High Tobacco/Smoking Status: Tobacco use Status Tobacco use date assessed 12/08/23 12/08/23 15:35 Patient Tobacco Use Status Former Tobacco user 12/08/23 15:33 e-Cigarette/Vaping Use Currently Using 12/08/23 15:33 Thrive Assessment: Date of Thrive Assessment Date Thrive assessed 07/19/23 12/08/23 15:26 Const Other: Examination done with a female medical billing clerk in the room. General: cooperative and healthy appearing Nutritional Appearance: well nourished Orientation/consciousness: patient oriented x3 Limitations: no limitations HENMT Head: Yes normal to inspection Eyes General: appearance normal, both eyes and all related structures Neck Neck: Yes normal visual inspection Chest Chest palpation & inspection: normal palpation of entire chest wall Resp Effort & Inspection: normal respiratory effort GI Other: Abdomen: Pendulous. No discomfirt on palpation. BS are well heard in all quadrants. Neuro General: patient oriented x3 Assessment and Plan Assessment & Plan (1) Abdominal pain: Code(s): R10.9 - Unspecified abdominal pain Plan: Patient was reassured that an abdominal hernia is a remote possibility. Symptoms are most likely due to constipation. Laxatives like Milk of Magnesia should be tried. If sx do not improve, an Ultrasound of the abdomen can be ordered. 15 minutes spent in reassuring the patient that an abdominal hernia is very unlikely. Coding Level of Care Code Est Pt Level 4 (23794) Diagnoses Abdominal pain R10.9
[2023-12-08 15:28] VITALS: BP 110/72; PULSE 70; O2SAT 97; BMI 48.9
== END 2023-12-08 17:03 | disposition home or self-care (01) ==
LOC: HO.HMGH 15:26
PROVIDERS: PCP Internal Medicine; Visit Provider Internal Medicine
DX: R10.9 Unspecified abdominal pain (principal)
CPT/HCPCS: 99214

== ENCOUNTER 2024-01-26 16:01 | Outpatient (AMB) | payer OTHER, SELFPAY ==
--- NOTE | 2024-01-26 16:14 | MHC.OFFVIS ---
Vital Signs 01/26/24 16:21 Height 5 ft 7.5 in Weight 315 lb 4.176 oz BMI 48.6 BP 118/74 Intake Visit Reasons: IUD removal per Door Framer Required: No Information Interpreted: non-clinical & clinical Director Advertising: Director Advertising Present (Isa PADRON) Accompanied by: Self / Same As Patient Allergies prednisone Allergy (Intermediate, Verified 01/26/24 16:22) Itching Is last menstrual period known: No (Mirena) HPI Comments Details: Presenting requesting her Mirena IUD out because she feels that the progesterone is impacting her mental health team her depressive symptoms exacerbated, She has h/o depression and anxiety since adolescence and for the past month she has been having increased anxiety and dark thoughts. She is not suicidal or homicidal at this time but she is concerned that she is feeling worse and is having trouble coping with the thoughts. She is not taking any antidepressants currently and had an online counselor until about a year ago as she was not happy with. Pt was teary during our conversation and has been for the last month. [facility] Medical History Allergic rhinitis Morbid obesity with BMI of 50.0-59.9, adult Anxiety Surgical History History of lumbar laminectomy for spinal cord decompression Hx of tonsillectomy No pertinent past surgical history Family History Other Brain cancer Diabetes FH: mental illness Hypertension Skin cancer Substance abuse Social History Housing: House Alcohol intake: never Patient Tobacco Use Status: Former Tobacco user e-Cigarette/Vaping Use: Currently Using Second Hand Smoke Exposure: Yes Substance Use Type: Marijuana service: No Current occupational status: employed and unemployed Current occupational exposures/hazards: No Cognitive needs: No Hearing needs: No Vision needs: No Female Reproductive History Menstrual Age of Menarche: 10 Review of Systems Const All systems reviewed & are unremarkable except as noted in HPI and below Physical Exam General: Yes no CVA tenderness External Female Exam: normal external appearance and normal appearance of the urethra Speculum Exam - Vagina: normal appearance of the vagina, normal palpation, no lesions and no masses Speculum Exam - Cervix: normal appearance of the cervix, normal palpation, no lesions, no masses, nontender and Other cervical findings present (IUD thread seen) Bimanual exam- vagina & uterus: normal bimanual exam, normal palpation, uterine size normal, normal palpation, uterine shape normal, No Cervical tenderness present and non-tender Bimanual Exam- Adnexa, other: normal adnexae Back/Spine/Pelvis Back: no CVA tenderness Office Procedures IUD Insert/Removal Details Details: Counseling/Consent: After discussing with the patient the risks of the procedure including bleeding, infection, scar tissue formation, , possible injury to blood vessels or nerves, chronic arm pain, blood transfusion, and irregular unpredictable bleeding Alternative options were discussed with the patient including but not limited: Do nothing. The patient signed the consent and agreed with the plan; all questions answered. Urine test was done in the office and was negative Preop dx: Requesting IUD removal Op: IUD removal Post op dx: same EBL= 10 cc Procedure: The patient was put in the dorsal lithotomy position a speculum was inserted in the vagina the IUD thread identified. Using a Gina clamp the thread was grasped and the IUD pulled out with no complications. The patient tolerated the procedure well and was advised to use a different method for contraception. Discharge instructions: Instructions were given to the pt to call if temp>100.4, abdominal pain heavy vaginal bleeding, n/v occur. The patient verbalized understanding and all questions answered. This note was generated with a voice recognition program. Some errors may have been overlooked during the review of this note. Sometimes these errors may affect the content or meaning of a given sentence. 41289-OLW Removal Procedure code (CPT) selection complete Results AMB Test Urine AMB Test Urine Negative Last Edit by Isa Garza CMA on 01/26/24 16:23 Assessment & Plan Assessment & Plan (1) Encounter for IUD removal: Code(s): Z30.432 - Encounter for removal of intrauterine contraceptive device Category: Medical Plan: Mirena IUD removed, see procedure note (2) Depressed: Code(s): F32.A - Depression, unspecified Category: Medical Plan: Instructed the patient to go to emergency room immediately to be evaluated and make sure that she safe to go home and possibly started on treatment Orders: Orders AMB HCG Urine Test Today Z32.02 - Encounter for test, result negative Coding Level of Care Code Est Pt Level 3 (23859) Diagnoses Encounter for IUD removal Z30.432 Depressed F32.A CPT Codes Details - CPT: 66218-EMC Removal ([id number])
[2024-01-26 16:21] VITALS: BP 118/74; BMI 48.6
== END 2024-01-27 09:40 | disposition home or self-care (01) ==
LOC: HO.HWS 16:01
PROVIDERS: PCP Internal Medicine; Visit Provider Obstetrics & Gynecology
DX: F32.A Depression, unspecified (principal); Z30.432 Encounter for removal of intrauterine contraceptive device; Z32.02 Encounter for pregnancy test, result negative
CPT/HCPCS: 58301; 99213

== ENCOUNTER → 2024-01-26 16:01 | Outpatient (BNVA) | payer OTHER, SELFPAY | PROVIDERS: PCP Internal Medicine; Visit Provider Obstetrics & Gynecology | DX: Z30.432 Encounter for removal of intrauterine contraceptive device (principal); F32.A Depression, unspecified | CPT/HCPCS: 58301; 81025; 99212 ==

== ENCOUNTER 2024-05-24 15:20 | Outpatient (AMB) | payer OTHER, SELFPAY ==
[2024-05-24 15:25] VITALS: BP 122/86; PULSE 86; O2SAT 98; BMI 46.8
--- NOTE | 2024-05-24 15:25 | A.OFFPC_ITS ---
Vital Signs 05/24/24 15:25 Height 5 ft 7.5 in Weight 303 lb 6 oz BMI 46.8 BP 122/86 Blood Pressure Location Lt brachial Position Sitting Pulse 86 Pulse Source Pulse Oximeter Pulse Oximetry (%) 98 Oxygen Delivery Method Room Air Intake Visit Reasons: 6 mth f/u [employer] Installation Supervisor Required: No Accompanied by: Self / Same As Patient Allergies prednisone Allergy (Intermediate, Verified 05/25/24 05:50) Itching Medication List - Last Reconciled 05/24/24 by Robinson Banerjee MD cetirizine 10 mg PO DAILY PRN 90 days cholecalciferol (vitamin D3) 50 mcg PO DAILY 90 days clotrimazole-betamethasone 1-0.05 % 1 appl topical BID 5 days levonorgestrel (Mirena) intrauterine saffron extract 2 to 4 tablets orally daily; terconazole 0.8% 1 appful vaginal BEDTIME 3 days Tobacco use date assessed: 05/24/24 Dental Screening Dental Screen Date: 05/24/24 HPI 6 mth f/u HPI Details Patient comes in today for her follow up visit States that she has been experiencing bilateral foot pain, which started approximately two months ago following a fall on stairs in the dark at home She did not think that she broke her ankles or feet as she was able to walk post-incident but she is now experiencing discomfort localized to the top of both feet as well as over her heels and suspects potential misalignment or bone spurs Adds that she recently went to a walk-in clinic for a yeast infection and she is currently still taking the medication that she was prescribed Regarding weight management, patient has successfully lost weight from an initial 375 pounds earlier this year to around 303 pounds at present, predominantly through dietary modifications, including the use of saffron extract, as well as walking and increased activities but her recent increased pain in her feet has led to a reduction in her physical activity Adds that she also has not seen psychiatry yet for her anxiety as the appointment she had when she was referred earlier this year was a telehealth visit, which she does not want she prefers in-person appointments and direct consultations and so far, she has not been able to find any psychiatry office or therapists that offer in-person appointment at this time She denies any headaches or dizziness Denies any chest pains, no increased shortness of breath although she reports (+) chest tightness at times recently and would like to have her Albuterol inhaler Rx refilled No nausea/vomiting, no abdominal pain No change in bowel habits noted [facility] Medical History (Updated 05/25/24 @ 06:14 by Robinson Banerjee MD) Vitamin D deficiency Reactive airway disease Morbid obesity with BMI of 45.0-49.9, adult Allergic rhinitis Morbid obesity with BMI of 50.0-59.9, adult Anxiety Surgical History History of lumbar laminectomy for spinal cord decompression Hx of tonsillectomy No pertinent past surgical history Family History Other Brain cancer Diabetes FH: mental illness Hypertension Skin cancer Substance abuse Social History Housing: House Alcohol intake: never Patient Tobacco Use Status: Former Tobacco user e-Cigarette/Vaping Use: Currently Using Second Hand Smoke Exposure: Yes Substance Use Type: Marijuana service: No Current occupational status: employed and unemployed Current occupational exposures/hazards: No Cognitive needs: No Hearing needs: No Vision needs: No Female Reproductive History Menstrual Age of Menarche: 10 Questionnaire PHQ-9 Over the last 2 weeks, how often have you been bothered by any of the following problems? 1. Little interest or pleasure in doing things: several days 2. Feeling down, depressed, or hopeless: several days 3. Trouble falling or staying asleep, or sleeping too much: nearly every day 4. Feeling tired or having little energy: nearly every day 5. Poor appetite or overeating: not at all 6. Feeling bad about yourself - or that you are a failure or have let yourself or your family down: nearly every day 7. Trouble concentrating on things, such as reading the newspaper or watching t elevision: nearly every day 8. Moving or speaking so slowly that other people could have noticed. Or the opposite - being so fidgety or restless that you have been moving around a lot more than usual: nearly every day 9. Thoughts that you would be better off or of hurting yourself in some way: not at all Total score: 17 Depression Screening Interpretation: Positive Depression Screening Follow-up: Existing condition and Community Mental Health Worker F/U Depression Screening Done: Yes 76285 - PHQ-9 Billing: Yes Source: Developed by Drs. Boris Graf, Manisha Cardenas, Devon Cobian and colleagues, with an educational bambi from [employer]. Thrive Questionnaire Date Thrive assessed: 05/24/24 I am a: Patient What is your living situation today?: I have a steady place to live Within the past 12 months, did the food you bought not last and you didn't have the money to get more?: Never true Within the past 12 months, did you worry whether your food would run out before you got money to buy more?: Never true Do you have trouble paying for medicines?: No Do you have trouble getting transportation to medical appointments?: No Do you have trouble paying your heating and electricity bill?: No Do you have trouble taking care of your child, family member or friend?: No Do you have trouble with day-to-day activities such as bathing, preparing meals, shopping, managing finances, etc.?: No Are you currently unemployed and looking for a job?: No Are you interested in more education?: No Please select the resources that you would like help with: None Currently or been in a relationship where the following occur: No concerns reported THRIVE Score: 0 AUDIT C Alcohol Use Questionnaire (AUDIT-C) 1. How often do you have a drink containing alcohol?: Never 3. How often do you have six or more drinks on one occasion?: Never Total Score: 0 Score Reviewed/Action Taken: Yes TAWNY-7 AMB Questionnaire TAWNY-7 Date TAWNY - 7 assessed: 05/24/24 Feeling nervous, anxious, or on edge: 0 = Not at all Not being able to stop or control worryin = Not at all Worrying too much about different things: 0 = Not at all Trouble relaxin = Not at all Being so restless that it is hard to sit still: 0 = Not at all Becoming easily annoyed or irritable: 0 = Not at all Feeling afraid as if something awful might happen: 0 = Not at all Total TAWNY-7 score (0-4 normal; 5-9 mild; 10-14 moderate; 15-21 severe): 0 Source: Developed by Drs. Boris Graf, Manisha Cardenas, Devon Cobian and colleagues, with an educational bambi from [employer]. Review of Systems Const Denies chills, Denies fatigue, Denies fever(s) and Denies headache(s) ENT Denies dysphagia, Denies dizziness, Denies otalgia, Denies headache(s), Denies neck pain, Denies odynophagia and Denies sore throat Card Denies chest pain, Denies irregular heart rhythm, Denies palpitations and Denies dyspnea Resp Denies cough, Denies dyspnea and Denies wheezing GI Denies abdominal pain, Denies constipation, Denies dysphagia, Denies heartburn, Denies diarrhea, Denies nausea, Denies odynophagia and Denies vomiting Denies urinary frequency, Denies dysuria and Denies urinary urgency Musc Details: (+) pain on both feet and over her heels lately Denies back pain, Denies arthralgias and Denies neck pain Skin/Breast Reports lesions ((+) multiple scattered dark lesions on her skin - see HPI) and Denies rash Neuro Denies dizziness, Denies headache(s) and Denies paresthesias Psych Reports anxiety and Reports depression Endo Denies fatigue and Denies palpitations Amado/Lymph Denies easy bruising Aller/Immun Reports seasonal rhinorrhea and Denies wheezing Physical exam (Primary Care) Vital Signs: Last Vital Signs Pulse 86 05/24/24 15:25 BP 122/86 05/24/24 15:25 Pulse Ox 98 05/24/24 15:25 Oxygen Delivery Method Room Air 05/24/24 15:25 BMI result Body Mass Index 46.8 Tobacco/Smoking Status: Tobacco use Status Tobacco use date assessed 05/24/24 05/24/24 15:32 Patient Tobacco Use Status Former Tobacco user 05/24/24 15:32 e-Cigarette/Vaping Use Currently Using 05/24/24 15:32 PHQ-9: PHQ-9 Score PHQ-9: Total score 17 05/24/24 15:45 Depression Screening Interpretation: Positive Depression Screening Follow-up: Existing condition and Community Mental Health Worker F/U Thrive Assessment: Date of Thrive Assessment Date Thrive assessed 05/24/24 05/24/24 15:32 Currently or been in a relationship where the following occur: No concerns reported Const General: no acute distress and alert HENMT Ears: TM's normal bilaterally and EAC's normal Throat: Yes posterior oropharynx normal and Yes tonsils normal (no TP congestion) Neck Neck: Yes no lymphadenopathy and Yes supple Thyroid: Thyroid normal Resp Auscultation: clear to auscultation bilaterally, no rales and no wheezes Cardio Rate: regular rate Rhythm: regular rhythm Heart sounds: no murmurs GI Palpation (GI): Soft to palpation and nontender Auscultation: normal bowel sounds General: Yes no CVA tenderness Back/Spine/Pelvis Back: no CVA tenderness Thoracic/Lumbar Spine: thoracic and lumbar spine normal to inspection Skin Other: (+) multiple scattered hyperpigmented skin lesions that are more prominent/numerous on her hands and digits Rashes: no rashes Extrem General: Yes no clubbing, cyanosis or edema Right lower extremity: foot Details: tenderness Location: of the dorsal foot Location: proximally and of the calcaneus Details: point tenderness and no edema Left lower extremity: foot Details: tenderness Location: of the dorsal foot Location: proximally and no edema Coding Level of Care Code Est Pt Level 4 (89110) Diagnoses Mild intermittent reactive airway disease without complication J45.20 Asthma severity: mild Asthma persistence: intermittent Asthma complication type: uncomplicated Allergic rhinitis, unspecified seasonality, unspecified trigger J30.9 Allergic rhinitis seasonality: unspecified Allergic rhinitis trigger: unspecified Hyperpigmented skin lesion L81.9 Vitamin D deficiency E55.9 Pain in both feet M79.671; M79.672 Anxiety F41.9 Morbid obesity with BMI of 45.0-49.9, adult E66.01; Z68.42 Additional Codes PHQ-9 - 40441 - PHQ-9 Billing: Yes ([id number]) Assessment & Plan Assessment & Plan (1) Reactive airway disease: Code(s): J45.909 - Unspecified asthma, uncomplicated Category: Medical Qualifiers: Asthma severity: mild Asthma persistence: intermittent Asthma complication type: uncomplicated Qualified Code(s): J45.20 - Mild intermittent asthma, uncomplicated Plan: Per request, will refill her Albuterol HFA 1 to 2 inhalations Q 6 hours PRN (2) Allergic rhinitis: Code(s): J30.9 - Allergic rhinitis, unspecified Category: Medical Qualifiers: Allergic rhinitis seasonality: unspecified Allergic rhinitis trigger: unspecified Qualified Code(s): J30.9 - Allergic rhinitis, unspecified Plan: Continue Cetirizine 10 mg QD PRN (3) Hyperpigmented skin lesion: Code(s): L81.9 - Disorder of pigmentation, unspecified Category: Medical Plan: She has been referred to dermatology months ago and states that she is scheduled to be seen for initial consultation in July 2024 (4) Vitamin D deficiency: Code(s): E55.9 - Vitamin D deficiency, unspecified Category: Medical Plan: Continue Vitamin D3 2000 units QD (5) Pain in both feet: Code(s): M79.671 - Pain in right foot; M79.672 - Pain in left foot Category: Medical Plan: Will patient for x-rays of both feet for further evaluation (6) Anxiety: Code(s): F41.9 - Anxiety disorder, unspecified Category: Medical Plan: Patient has not seen psychiatry yet as her last visit was scheduled as a telehealth visit, which she does not want to participate in as she prefers in- person visits and consultations Will try referring her to our outpatient psychiatry here at [facility] [place] to at least get her started with psychiatry and she can then decide how she wants to proceed afterwards (7) Morbid obesity with BMI of 45.0-49.9, adult: Code(s): E66.01 - Morbid (severe) obesity due to excess calories; Z68.42 - Body mass index [BMI] 45.0-49.9, adult Category: Medical Plan: Reinforced diet/exercise as tolerated/lose weight - she has been able to lose a lot of weight over the past year and is encouraged to continue Plan To return in 3 months for her next annual physical examination Orders: Orders XR foot LT min 3V 05/24/24 M79.672 - Pain in left foot Complete Blood Count Auto Diff 3 Months D64.9 - Anemia, unspecified, Z00.00 - Encounter for general adult medical examination without abnormal findings Vitamin D 25-OH Total 3 Months E55.9 - Vitamin D deficiency, unspecified, Z00.00 - Encounter for general adult medical examination without abnormal findings XR foot RT min 3V 24 M79.671 - Pain in right foot Comprehensive Masterson. Panel Fast 3 Months E78.00 - Pure hypercholesterolemia, unspecified, Z00.00 - Encounter for general adult medical examination without abnormal findings Lipid Panel 3 Months E78.00 - Pure hypercholesterolemia, unspecified, Z00.00 - Encounter for general adult medical examination without abnormal findings TSH reflex Free T4 3 Months E78.00 - Pure hypercholesterolemia, unspecified, Z00.00 - Encounter for general adult medical examination without abnormal findings UA CC w/rflx Micro + Cult 3 Months R30.0 - Dysuria, Z00.00 - Encounter for general adult medical examination without abnormal findings Referrals Psychiatry Outpatient Consultation Service F41.9 - Anxiety disorder, unspecified Medications: New Ventolin HFA 90 mcg/actuation (albuterol sulfate) 2 puffs inhalation Q6H 30 days PRN 18 grams 5RF shortness of breath or wheezing NS
== END 2024-05-24 15:58 | disposition home or self-care (01) ==
PROVIDERS: PCP Internal Medicine; Visit Provider Internal Medicine
DX: J45.20 Mild intermittent asthma, uncomplicated (principal); J30.9 Allergic rhinitis, unspecified; E66.01 Morbid (severe) obesity due to excess calories; Z68.42 Body mass index [BMI] 45.0-49.9, adult; L81.9 Disorder of pigmentation, unspecified; E55.9 Vitamin D deficiency, unspecified; M79.671 Pain in right foot; M79.672 Pain in left foot; F41.9 Anxiety disorder, unspecified

== ENCOUNTER → 2024-05-24 15:20 | Outpatient (BNVA) | payer OTHER, SELFPAY | PROVIDERS: PCP Internal Medicine; Visit Provider Internal Medicine | DX: J45.20 Mild intermittent asthma, uncomplicated (principal); J30.9 Allergic rhinitis, unspecified; L81.9 Disorder of pigmentation, unspecified; E55.9 Vitamin D deficiency, unspecified; M79.671 Pain in right foot; M79.672 Pain in left foot; F41.9 Anxiety disorder, unspecified; E66.01 Morbid (severe) obesity due to excess calories; Z68.42 Body mass index [BMI] 45.0-49.9, adult; Z71.3 Dietary counseling and surveillance | CPT/HCPCS: 96127; 99212 ==

== ENCOUNTER 2024-07-06 10:27 | Outpatient (AMB) | payer OTHER, SELFPAY ==
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
== END 2024-07-06 15:59 | disposition home or self-care (01) ==
LOC: HO.HOP 10:27
PROVIDERS: PCP Internal Medicine; Visit Provider Clinical Nurse Specialist Psychiatric/Mental Health
DX: F90.2 Attention-deficit hyperactivity disorder, combined type (principal); F84.0 Autistic disorder
CPT/HCPCS: 90792

== ENCOUNTER → 2024-07-06 10:27 | Outpatient (BNVA) | payer OTHER, SELFPAY | PROVIDERS: PCP Internal Medicine; Visit Provider Clinical Nurse Specialist Psychiatric/Mental Health | DX: F90.2 Attention-deficit hyperactivity disorder, combined type (principal); F84.0 Autistic disorder; F41.9 Anxiety disorder, unspecified; Z71.89 Other specified counseling | CPT/HCPCS: 90792 ==

== ENCOUNTER 2024-07-13 10:28 | Outpatient (AMB) | payer OTHER, SELFPAY ==
--- NOTE | 2024-07-13 10:56 | MHC.OFFVISPS ---
Intake Intake Visit Reasons: f/u cons Public Information Coordinator Required: No Allergies prednisone Allergy (Intermediate, Verified 05/25/24 05:50) Itching Medication List - Last Reconciled 07/13/24 by Zoila Adame APRN cetirizine 10 mg PO DAILY PRN 90 days cholecalciferol (vitamin D3) 50 mcg PO DAILY 90 days clotrimazole-betamethasone 1-0.05 % 1 appl topical BID 5 days dextroamphetamine-amphetamine 10 mg (Adderall) 10 mg PO BID levonorgestrel (Mirena) intrauterine saffron extract 2 to 4 tablets orally daily; terconazole 0.8% 1 appful vaginal BEDTIME 3 days Ventolin HFA 90 mcg/actuation (albuterol sulfate) 2 puffs inhalation Q6H PRN 30 days NS HPI- Psychiatric Chief Complaint: f/u cons HPI Narrative: Pt seen today by telehealth as she could not get a ride to appt today. We reviewed her history: Pt referred by PCP for evaluation of anxiety and medication optimization. pt reports a long history of anxiety and mental and emotional discomfort. She reports significant difficulty functioning most of her life; she was diagnosed with Bipolar Disorder and ODD as a child. She feels she was misdiagnosed. She had great difficulty managing school due to sensory issues, focus, attention, concnetration, and staying on task. she was often labled gifted but lazy. Her brother had more significant mental health problems and much of the family attention and resources were focused on him. Pt has a 2 year old daughter who was recently diagnosed with autism. As the patient was filling out paperwork and assessment forms for her daughter, she became aware and overwhelmed by the fact that she may have had auitim herself all htese years. She reports she couldn't stand school as a child due to all the people and pressure at school. She reports also feeling mistreated because she was able to do math in her head and her reading level was well above her peers; because of this, she was frequently accused of cheating or harassed to show her work in math class because she always found the answers a different way than her teachers. She reports a constant inner monologue. She reports a lifelong history of difficulty looking people in the eye but as an adult forced herself to learn how to do it so she wasn't labeled 'weird. She has trouble taking showers or washing dishes because she can't stand the feel of water or soap; since learning about autism she bought a very long pair of gloves that go all the way up to her shoulders and can now wash dishes without feeling completely overwhelmed and agitated inside. She reports faking sick since 3rd grade to get out of going to school however once this didn't work, she would pretend to go to school but be truant and sneak back into her house from about 5th grade well into high school; she finally left in 11th grade and went to [place]; after one day at [facility] the teacher let her take the GED and she passed it the first time and got her GED. She has not been able to work due to not being able to deal with people. she has tried approximately 8 jobs but didn't last more than 3 months due to high distress; she is not on disability. she can't drive from crippling fear of failure. she has trouble organizing at home; she is tired and low energy. She has hypersomnia sleeping up to 16 hours when she can. she tosses and turns at night; she has increased appetite. she is trying to lose weight and has lost 100 # in one year; she takes a saffron supplement to reduce appetite. No history of cindy, no history of impulsive high risk behaviors. PHQ9= 17 GAD7= 14 ADHD self report scale = 18 (anything above 13 is predictive of ADHD) she would like to try a medication for ADHD as she feels her depression comes from not being able to get things done and motivate herself to do the things she needs to and wants to. she is overwhelmed with housework including organizing things, going grocery shopping and staying on tasks that requireorganization and focus. Past Psychiatric History: In and out of therapy her whole life- she says most of the time the focus was on her brother and mother who had high needs; Pt IPLOC 3-4 times in [place] in teens. Pt tried to commit suicide at age 12 by cutting wrists and recalls being told she was attention seeking; at age 14 she overdosed on melatonin. NOTE: father by overdose when pt was 13 or 14 yrs old. Pt says she tried to overdose 2-3 more times between 14 and 16 to . at 17 yo pt checked herself into a psychiatric hospital due to SI. She reports being on several meds in the past and had negative reactions sertraline- agitation hydrozyibe - ineffective abilify= increased anger riperdal- can't recall depakote- helped a little but sleepy seroquel - ineffective Subjective Subjective Subjective Medication Compliance: Yes Side effects from medications: No Review of Systems Medical Review of Systems: unchanged Mental Status Exam Mental Status Exam Patient Appearance: Appropriate Patient Orientation: Person, Place, Time and Situation Level of Consciousness: Awake and Alert Patient Behavior: Appropriate, Cooperative and Distractible Mood Description: Calm Affect Description: Calm Patient Cognition Impaired: No Ability to Follow Directions: Good Speech Pattern: Clear and Coherent Memory Description: Intact Hallucinations: None Delusions: Not Present Thought Process: Intact and Distracted Thought Content: positive for Intact Judgement: Good Telehealth Telehealth Telehealth Platform: Other (please specify) ([employer]) Location of provider rendering services: practice address Location of patient: address on file Patient Identification confirmed using: Name, : Yes Telehealth method: video Patient verbally consented to treatment: Yes Patient verbally consented to billing insurance company: Yes Patient informed of any privacy concerns related to visit: Yes Minutes spent on Phone/Video with Pt.: 30 Assessment and Plan Assessment & Plan (1) Autism spectrum disorder: Status: Acute Code(s): F84.0 - Autistic disorder (2) ADHD (attention deficit hyperactivity disorder), combined type: Status: Acute Code(s): F90.2 - Attention-deficit hyperactivity disorder, combined type Plan start adderall; reviewed SE, risks vs benefits and alternatives Medications: New dextroamphetamine-amphetamine 10 mg (Adderall) administer doses at least 4-6 hours apart; Partial Fill upon patient request. 10 mg PO BID 60 tabs 0RF Counseling and coordination of Care Pt. Self Management counseling: Maintenance-social rhythm, Mod caffeine/ETOH intake, Sleep hygiene, Behavior activation and General coping skills Medication management counseling: Effectiveness, Side effects, Dosing range, Duration, Drug interaction and Adherence Diagnosis and Prognosis Counseling: Accuracy of diagnosis, Prognosis over time, Impact of diagnosis on life functions, Impact of family relationship, Problematic behaviors secondary to diagnosis and Adequacy of current interventions Details: I spent 40 minutes reviewing the record, seeing the patient and documenting in the medical record. Counseling provided to the patient/caregiver as outlined below. Addressed patient/caregiver concerns regarding current medication regime including effective adherence. Addressed patient/caregiver concerns regarding diagnosis and prognosis including accuracy of diagnosis, prognosis over time, impact of diagnosis. Addressed patient/caregiver concerns regarding impact of recent stressors. REPLACED BY [facility] Medical History (Updated 07/13/24 @ 12:56 by Zoila Adame APRN) Vitamin D deficiency Reactive airway disease Morbid obesity with BMI of 45.0-49.9, adult Allergic rhinitis Morbid obesity with BMI of 50.0-59.9, adult Anxiety Surgical History History of lumbar laminectomy for spinal cord decompression Hx of tonsillectomy No pertinent past surgical history Family History (Updated 07/13/24 @ 12:52 by Zoila Adame APRN) Father FH: mental illness Brother FH: mental illness Other Brain cancer Diabetes Hypertension Skin cancer Substance abuse Social History Housing: House Alcohol intake: never Patient Tobacco Use Status: Former Tobacco user e-Cigarette/Vaping Use: Currently Using Second Hand Smoke Exposure: Yes Substance Use Type: Marijuana service: No Current occupational status: employed and unemployed Current occupational exposures/hazards: No Cognitive needs: No Hearing needs: No Vision needs: No Social History: lives with and 2 yo child Substance History: THC in evenings; no other substance use including etoh Trauma History: yes childhood Coding Level of Care Code Tele Est Pt Level 4 (59872) Diagnoses Autism spectrum disorder F84.0 ADHD (attention deficit hyperactivity disorder), combined type F90.2
== END 2024-07-13 11:40 | disposition home or self-care (01) ==
LOC: HO.HOP 10:28
PROVIDERS: PCP Internal Medicine; Visit Provider Clinical Nurse Specialist Psychiatric/Mental Health
DX: F84.0 Autistic disorder (principal); F90.2 Attention-deficit hyperactivity disorder, combined type
CPT/HCPCS: 99214

== ENCOUNTER → 2024-07-13 10:28 | Outpatient (BNVA) | payer OTHER, SELFPAY | PROVIDERS: PCP Internal Medicine; Visit Provider Clinical Nurse Specialist Psychiatric/Mental Health ==

== ENCOUNTER 2024-08-03 15:27 | Outpatient (AMB) | payer OTHER, SELFPAY ==
--- NOTE | 2024-08-03 15:45 | A.OFFPSYCH_ITS ---
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: No Allergies prednisone Allergy (Intermediate, Verified 05/25/24 05:50) Itching Medication List - Last Reconciled 08/03/24 by Zoila Adame APRN cetirizine 10 mg PO DAILY PRN 90 days cholecalciferol (vitamin D3) 50 mcg PO DAILY 90 days clotrimazole-betamethasone 1-0.05 % 1 appl topical BID 5 days dextroamphetamine-amphetamine 10 mg (Adderall) 10 mg PO BID levonorgestrel (Mirena) intrauterine saffron extract 2 to 4 tablets orally daily; terconazole 0.8% 1 appful vaginal BEDTIME 3 days Ventolin HFA 90 mcg/actuation (albuterol sulfate) 2 puffs inhalation Q6H PRN 30 days NS HPI- Psychiatric Chief Complaint: f/u cons HPI Narrative: pt reports improvement. She feels the adderall has helped her stay on task more easily; She reports that it is still hard too initiate action and also hard to switch focus; she also has trouble relaxing at the end of the day and settling down, She has consistent trouble falling asleep for years. She has taken 100- 300mg of benadryl at bedtime as needed over the years; we discussed alternatives. PHQ(=12 down from 17 and GAD7 = 9 down from 14. No SI or HI . pt reported stress in primary relationship with incompatible goals- she will consider therapy Past Psychiatric History: In and out of therapy her whole life- she says most of the time the focus was on her brother and mother who had high needs; Pt IPLOC 3-4 times in [place] in teens. Pt tried to commit suicide at age 12 by cutting wrists and recalls being told she was attention seeking; at age 14 she overdosed on melatonin. NOTE: father by overdose when pt was 13 or 14 yrs old. Pt says she tried to overdose 2-3 more times between 14 and 16 to . at 17 yo pt checked herself into a psychiatric hospital due to SI. She reports being on several meds in the past and had negative reactions sertraline- agitation hydrozyibe - ineffective abilify= increased anger riperdal- can't recall depakote- helped a little but sleepy seroquel - ineffective Subjective Subjective Subjective Medication Compliance: Yes Side effects from medications: No Review of Systems Medical Review of Systems: unchanged Mental Status Exam Mental Status Exam Patient Appearance: Appropriate Patient Orientation: Person, Place, Time and Situation Level of Consciousness: Awake and Appropriate Patient Behavior: Appropriate, Good Eye Contact and Crying Mood Description: Happy, Appropriate, Anxious and Sad Affect Description: Happy, Appropriate, Anxious and Sad Patient Cognition Impaired: No Ability to Follow Directions: Good Speech Pattern: Clear Memory Description: Intact Hallucinations: None Delusions: Not Present Thought Process: Intact, Racing and Distracted Thought Content: positive for Intact and positive for Loose Associations Judgement: Fair Assessment and Plan Assessment & Plan (1) Autism spectrum disorder: Status: Acute Code(s): F84.0 - Autistic disorder (2) ADHD (attention deficit hyperactivity disorder), combined type: Status: Acute Code(s): F90.2 - Attention-deficit hyperactivity disorder, combined type Plan stop adderall IR start adderall XR 25mg am start clonidine 0.1mg 30-60 min befrore bedtime; may need to increase to 02. mg if ineffective I asked pt will send message [employer] portal if still not sleeping on 0.1mg clonidine Medications: New dextroamphetamine-amphetamine 25 mg ER (Adderall XR) Partial Fill upon patient request. 25 mg PO DAILY 30 caps 0RF clonidine HCl 0.1 mg PO BEDTIME 30 tabs 1RF Discontinued dextroamphetamine-amphetamine 10 mg (Adderall) administer doses at least 4-6 hours apart; Partial Fill upon patient request. Discontinued Reason: Doctor's Order 10 mg PO BID 60 tabs 0RF Counseling and coordination of Care Pt. Self Management counseling: Maintenance-social rhythm, Mod caffeine/ETOH intake, Nutrition education and improvement, General coping skills and Problem solving Medication management counseling: Effectiveness, Side effects, Dosing range, Duration, Drug interaction and Adherence Diagnosis and Prognosis Counseling: Accuracy of diagnosis, Prognosis over time, Impact of diagnosis on life functions, Impact of family relationship, Problematic behaviors secondary to diagnosis and Adequacy of current interventions Details: I spent 50 minutes reviewing the record, seeing the patient and documenting in the medical record. Counseling provided to the patient/caregiver as outlined below. Addressed patient/caregiver concerns regarding current medication regime including e ffective adherence. Addressed patient/caregiver concerns regarding diagnosis and prognosis including accuracy of diagnosis, prognosis over time, impact of diagnosis. Addressed patient/caregiver concerns regarding impact of recent stressors. [facility] Medical History (Updated 07/13/24 @ 12:56 by Zoila Adame APRN) Vitamin D deficiency Reactive airway disease Morbid obesity with BMI of 45.0-49.9, adult Allergic rhinitis Morbid obesity with BMI of 50.0-59.9, adult Anxiety Surgical History History of lumbar laminectomy for spinal cord decompression Hx of tonsillectomy No pertinent past surgical history Family History (Updated 07/13/24 @ 12:52 by Zoila Adame APRN) Father FH: mental illness Brother FH: mental illness Other Brain cancer Diabetes Hypertension Skin cancer Substance abuse Social History Housing: House Alcohol intake: never Patient Tobacco Use Status: Former Tobacco user e-Cigarette/Vaping Use: Currently Using Second Hand Smoke Exposure: Yes Substance Use Type: Marijuana service: No Current occupational status: employed and unemployed Current occupational exposures/hazards: No Cognitive needs: No Hearing needs: No Vision needs: No Social History: lives with and 2 yo child Substance History: THC in evenings; no other substance use including etoh Trauma History: yes childhood Coding Level of Care Code Est Pt Level 5 (07724) Diagnoses Autism spectrum disorder F84.0 ADHD (attention deficit hyperactivity disorder), combined type F90.2
== END 2024-08-03 16:19 | disposition home or self-care (01) ==
LOC: HO.HOP 15:27
PROVIDERS: PCP Internal Medicine; Visit Provider Clinical Nurse Specialist Psychiatric/Mental Health
DX: F84.0 Autistic disorder (principal); F90.2 Attention-deficit hyperactivity disorder, combined type
CPT/HCPCS: 99215

== ENCOUNTER → 2024-08-03 15:27 | Outpatient (BNVA) | payer OTHER, SELFPAY | PROVIDERS: PCP Internal Medicine; Visit Provider Clinical Nurse Specialist Psychiatric/Mental Health | DX: F84.0 Autistic disorder (principal); F90.2 Attention-deficit hyperactivity disorder, combined type; Z71.89 Other specified counseling | CPT/HCPCS: 99212 ==

== ENCOUNTER 2024-08-25 16:09 | Outpatient (AMB) | payer OTHER, SELFPAY ==
[2024-08-25 16:40] VITALS: BP 124/82; PULSE 90; O2SAT 98; BMI 45.7
--- NOTE | 2024-08-25 16:40 | MHC.PC.OV ---
Vital Signs 08/25/24 16:40 Height 5 ft 7.5 in Weight 296 lb BMI 45.7 BP 124/82 Blood Pressure Location Lt brachial Position Sitting Pulse 90 Pulse Source Pulse Oximeter Pulse Oximetry (%) 98 Oxygen Delivery Method Room Air Intake Visit Reasons: Annual Exam Customer Agent Required: No Accompanied by: Self / Same As Patient Allergies prednisone Allergy (Intermediate, Verified 08/25/24 17:00) Itching Medication List - Last Reconciled 08/25/24 by Robinson Banerjee MD cetirizine 10 mg PO DAILY PRN 90 days cholecalciferol (vitamin D3) 50 mcg PO DAILY 90 days clonidine HCl 0.1 mg PO BEDTIME clotrimazole-betamethasone 1-0.05 % 1 appl topical BID 5 days dextroamphetamine-amphetamine 25 mg ER (Adderall XR) 25 mg PO DAILY levonorgestrel (Mirena) intrauterine saffron extract 2 to 4 tablets orally daily; Ventolin HFA 90 mcg/actuation (albuterol sulfate) 2 puffs inhalation Q6H PRN 30 days NS Tobacco use date assessed: 08/25/24 Dental Screening Dental Screen Date: 08/25/24 Did you have a dental visit in the last 12 months?: Yes Did you have a dental problem in the last 6 months where you did not have access to dental care?: No Was dental information given to patient?: Patient has dentist HPI Annual Exam HPI Details Patient comes in today for her annual physical examination States that she feels well She denies any headaches or dizziness Denies any chest pains, no shortness of breath No nausea/vomiting, no abdominal pain No change in bowel habits noted She denies any acute urinary symptoms although she has noticed a swelling at her vulvar area recently that she initially thought was a yeast infection but more recently is suspecting that it could be a small hemorrhoid States that she has tried some OTC Preparation H recently but has not noticed any improvement and would like to know what she should do next She denies any vaginal discharge and states that she is up-to-date with her yearly gynecology exam and pap smear States that she is doing well with regards to her ADHD management/treatment with Anna Adame and she is happy to continue seeing her for her ADHD and psychiatric issues States that she suspects that she may have a possible autism spectrum condition as she has noticed some traits recently on her part that are similar to her daughter, who has been diagnosed with autism States that she brought this up to Anna Adame at a recent appointment with her and she has been referred to a facility specializing in adult autism for further evaluation Patient was not yet able to get her follow-up labs done -states that she will try to get these done [facility] Medical History (Updated 08/26/24 @ 05:43 by Robinson Banerjee MD) ADHD (attention deficit hyperactivity disorder), combined type Vitamin D deficiency Reactive airway disease Morbid obesity with BMI of 45.0-49.9, adult Allergic rhinitis Anxiety Surgical History History of lumbar laminectomy for spinal cord decompression Hx of tonsillectomy No pertinent past surgical history Family History Father FH: mental illness Brother FH: mental illness Other Brain cancer Diabetes Hypertension Skin cancer Substance abuse Social History Housing: House Alcohol intake: never Patient Tobacco Use Status: Former Tobacco user e-Cigarette/Vaping Use: Currently Using Second Hand Smoke Exposure: Yes Substance Use Type: Marijuana service: No Current occupational status: employed and unemployed Current occupational exposures/hazards: No Cognitive needs: No Hearing needs: No Vision needs: No Female Reproductive History Menstrual Age of Menarche: 10 Questionnaire PHQ-9 Over the last 2 weeks, how often have you been bothered by any of the following problems? 1. Little interest or pleasure in doing things: several days 2. Feeling down, depressed, or hopeless: several days 3. Trouble falling or staying asleep, or sleeping too much: several days 4. Feeling tired or having little energy: several days 5. Poor appetite or overeating: not at all 6. Feeling bad about yourself - or that you are a failure or have let yourself or your family down: several days 7. Trouble concentrating on things, such as reading the newspaper or watching television: several days 8. Moving or speaking so slowly that other people could have noticed. Or the opposite - being so fidgety or restless that you have been moving around a lot more than usual: several days 9. Thoughts that you would be better off or of hurting yourself in some way: not at all Total score: 7 Depression Screening Interpretation: Positive Depression Screening Follow-up: Existing condition and In treatment Depression Screening Done: Yes 45808 - PHQ-9 Billing: Yes Source: Developed by Drs. Boris Graf, Manisha Cardenas, Devon Cobian and colleagues, with an educational bambi from [employer]. Thrive Questionnaire Date Thrive assessed: 08/25/24 I am a: Patient What is your living situation today?: I have a steady place to live Within the past 12 months, did the food you bought not last and you didn't have the money to get more?: Sometimes True Within the past 12 months, did you worry whether your food would run out before you got money to buy more?: I choose not to answer this question Do you have trouble paying for medicines?: No Do you have trouble getting transportation to medical appointments?: Yes Do you have trouble paying your heating and electricity bill?: Yes Do you have trouble taking care of your child, family member or friend?: No Do you have trouble with day-to-day activities such as bathing, preparing meals, shopping, managing finances, etc.?: No Are you currently unemployed and looking for a job?: No Are you interested in more education?: No Please select the resources that you would like help with: Transportation Currently or been in a relationship where the following occur: No concerns reported THRIVE Score: 3 AUDIT C Alcohol Use Questionnaire (AUDIT-C) 1. How often do you have a drink containing alcohol?: Never 3. How often do you have six or more drinks on one occasion?: Never Total Score: 0 Score Reviewed/Action Taken: Yes TAWNY-7 AMB Questionnaire TAWNY-7 Date TAWNY - 7 assessed: 08/25/24 Feeling nervous, anxious, or on edge: 1 = Several days Not being able to stop or control worryin = Several days Worrying too much about different things: 1 = Several days Trouble relaxin = Several days Being so restless that it is hard to sit still: 1 = Several days Becoming easily annoyed or irritable: 1 = Several days Feeling afraid as if something awful might happen: 0 = Not at all Total TAWNY-7 score (0-4 normal; 5-9 mild; 10-14 moderate; 15-21 severe): 6 Source: Developed by Drs. Boris Graf, Manisha Cardenas, Devon Cobian and colleagues, with an educational bambi from [employer]. Review of Systems Const Denies chills, Denies fatigue, Denies fever(s), Denies headache(s) and Denies malaise Eyes Denies blurry vision, Denies change in vision, Denies irritation and Denies itchy eyes ENT Denies dysphagia, Denies dizziness, Denies otalgia, Denies headache(s), Denies nasal congestion, Denies neck pain, Denies odynophagia, Denies sinus pain and Denies sore throat Card Denies chest pain, Denies rapid heart rate, Denies irregular heart rhythm, Denies palpitations and Denies dyspnea Resp Denies chest congestion, Denies cough, Denies dyspnea and Denies wheezing GI Denies abdominal pain, Denies bloating, Denies constipation, Denies dysphagia, Denies heartburn, Denies diarrhea, Denies nausea, Denies odynophagia and Denies vomiting Details: (+) small cyst at the vulvar area - see HPI Denies hematuria, Denies urinary frequency, Denies dysuria, Denies urinary incontinence, Denies urinary urgency and Denies vaginal discharge Musc Denies back pain, Denies arthralgias, Denies joint swelling, Denies muscle weakness and Denies neck pain Skin/Breast Denies breast pain, Denies breast mass, Denies change in pigmentation, Denies lesions, Denies rash and Denies unusual bruising Neuro Denies dizziness, Denies headache(s) and Denies paresthesias Psych Denies anxiety, Denies depression and Denies difficulty concentrating (current Rx helping) Endo Denies fatigue and Denies palpitations Amado/Lymph Denies easy bruising Aller/Immun Denies itchy eyes and Denies wheezing Physical exam (Primary Care) Vital Signs: Last Vital Signs Pulse 90 08/25/24 16:40 BP 124/82 08/25/24 16:40 Pulse Ox 98 08/25/24 16:40 Oxygen Delivery Method Room Air 08/25/24 16:40 BMI result Body Mass Index 45.7 Tobacco/Smoking Status: Tobacco use Status Tobacco use date assessed 08/25/24 08/25/24 16:41 Patient Tobacco Use Status Former Tobacco user 08/25/24 16:41 e-Cigarette/Vaping Use Currently Using 08/25/24 16:41 PHQ-9: PHQ-9 Score PHQ-9: Total score 7 08/25/24 17:11 Depression Screening Interpretation: Positive Depression Screening Follow-up: Existing condition and In treatment Thrive Assessment: Date of Thrive Assessment Date Thrive assessed 08/25/24 08/25/24 16:41 Currently or been in a relationship where the following occur: No concerns reported Const General: no acute distress, alert and awake Orientation/consciousness: patient oriented x3 HENMT Head: Yes normocephalic and Yes atraumatic Ears: external ears normal, TM's normal bilaterally and EAC's normal General nose exam: No nasal discharge present Face and sinus: Yes normal facial exam and Yes sinuses nontender Teeth and gingiva: dentition normal Throat: Yes posterior oropharynx normal and Yes tonsils normal (no TP congestion) Eyes Eyelids: Yes eyelids normal Conjunctivae: conjunctivae normal Pupils: Equal, round and reactive pupils present EOM: EOMs intact bilaterally Neck Neck: Yes no lymphadenopathy and Yes supple Thyroid: Thyroid normal Resp Auscultation: clear to auscultation bilaterally, no rales and no wheezes Cardio Rate: regular rate Rhythm: regular rhythm Heart sounds: no murmurs GI Palpation (GI): Soft to palpation, nontender and No hepatosplenomegaly present Auscultation: normal bowel sounds General: Yes no CVA tenderness Back/Spine/Pelvis Back: no CVA tenderness Thoracic/Lumbar Spine: thoracic and lumbar spine normal to inspection Skin Lesions: no lesions Rashes: no rashes Neuro General: patient oriented x3, moves all extremities, no focal motor deficits and CN's II-XI intact bilaterally Cranial nerves: Yes Equal, round and reactive pupils present Cognition (Neuro): normal cognition Gait exam (Neuro): Normal gait present Extrem General: Yes no clubbing, cyanosis or edema Coding Level of Care Code Est Pt Prev Care 18-39y(08773) Diagnoses Annual physical exam Z00.00 Mild intermittent reactive airway disease without complication J45.20 Asthma severity: mild Asthma persistence: intermittent Asthma complication type: uncomplicated Allergic rhinitis, unspecified seasonality, unspecified trigger J30.9 Allergic rhinitis trigger: unspecified Allergic rhinitis seasonality: unspecified Vitamin D deficiency E55.9 Vaginal cyst N89.8 Insomnia, unspecified type G47.00 Insomnia type: unspecified ADHD (attention deficit hyperactivity disorder), combined type F90.2 Morbid obesity with BMI of 45.0-49.9, adult E66.01; Z68.42 Additional Codes PHQ-9 - 92687 - PHQ-9 Billing: Yes ([id number]) Assessment & Plan Assessment & Plan (1) Annual physical exam: Code(s): Z00.00 - Encounter for general adult medical examination without abnormal findings Category: Medical Plan: Check labs She is currently up-to-date with yearly gynecology exam and pap smear (2) Reactive airway disease: Code(s): J45.909 - Unspecified asthma, uncomplicated Category: Medical Qualifiers: Asthma severity: mild Asthma persistence: intermittent Asthma complication type: uncomplicated Qualified Code(s): J45.20 - Mild intermittent asthma, uncomplicated Plan: Controlled Continue Albuterol HFA 1 to 2 inhalations Q 6 hours PRN (3) Allergic rhinitis: Code(s): J30.9 - Allergic rhinitis, unspecified Category: Medical Qualifiers: Allergic rhinitis trigger: unspecified Allergic rhinitis seasonality: unspecified Qualified Code(s): J30.9 - Allergic rhinitis, unspecified Plan: Continue Cetirizine 10 mg QD PRN (4) Vitamin D deficiency: Code(s): E55.9 - Vitamin D deficiency, unspecified Category: Medical Plan: Continue Vitamin D3 2000 units QD (5) Vaginal cyst: Code(s): N89.8 - Other specified noninflammatory disorders of vagina Category: Medical Plan: Patient is already established with the [facility] as a patient and she is advised to just contact him to schedule an appointment and have them examine/evaluate her vaginal cyst to determine how to go about managing this (6) Insomnia: Code(s): G47.00 - Insomnia, unspecified Category: Medical Qualifiers: Insomnia type: unspecified Qualified Code(s): G47.00 - Insomnia, unspecified Plan: Sleep hygiene reinforced She is currently being tried on Clonidine 0.1 mg Q HS by Anna Adame to see if this helps or not (7) ADHD (attention deficit hyperactivity disorder), combined type: Code(s): F90.2 - Attention-deficit hyperactivity disorder, combined type Category: Medical Plan: Continue Adderall XR 25 mg QD -feels that she is doing very well on her current medication She has reportedly been tried on multiple other medications/mood agents in the past with either inadequate results or negative reactions (Sertraline- agitation; Abilify - increased anger; Depakote - sedation; Seroquel - ineffective; Hydroxyzine - ineffective; Risperdal - irritable) Follow-up with psychiatry as scheduled (8) Morbid obesity with BMI of 45.0-49.9, adult: Code(s): E66.01 - Morbid (severe) obesity due to excess calories; Z68.42 - Body mass index [BMI] 45.0-49.9, adult Category: Medical Plan: Reinforced diet/exercise as tolerated/lose weight - she has been able to lose some more weight since her last visit and is encouraged to continue Plan Follow up in 6 months
== END 2024-08-25 17:15 | disposition home or self-care (01) ==
PROVIDERS: PCP Internal Medicine; Visit Provider Internal Medicine
DX: Z00.00 Encounter for general adult medical examination without abnormal findings (principal); E66.01 Morbid (severe) obesity due to excess calories; Z68.42 Body mass index [BMI] 45.0-49.9, adult; J45.20 Mild intermittent asthma, uncomplicated; J30.9 Allergic rhinitis, unspecified; E55.9 Vitamin D deficiency, unspecified; N89.8 Other specified noninflammatory disorders of vagina; G47.00 Insomnia, unspecified; F90.2 Attention-deficit hyperactivity disorder, combined type

== ENCOUNTER → 2024-08-25 16:09 | Outpatient (BNVA) | payer OTHER, SELFPAY | PROVIDERS: PCP Internal Medicine; Visit Provider Internal Medicine | DX: Z00.00 Encounter for general adult medical examination without abnormal findings (principal); J45.20 Mild intermittent asthma, uncomplicated; J30.9 Allergic rhinitis, unspecified; E55.9 Vitamin D deficiency, unspecified; N89.8 Other specified noninflammatory disorders of vagina; G47.00 Insomnia, unspecified; F90.2 Attention-deficit hyperactivity disorder, combined type; E66.01 Morbid (severe) obesity due to excess calories; Z68.42 Body mass index [BMI] 45.0-49.9, adult; Z71.3 Dietary counseling and surveillance | CPT/HCPCS: 96127; 99395 ==

== ENCOUNTER 2024-08-30 08:06 | Outpatient (AMB) | payer OTHER, SELFPAY ==
--- OUTSIDE RECORDS SUMMARY | 2024-08-30 08:12 | XMS_ITS | Encounter Summary ---
Author Organization [employer] [facility] Address [address] [place] [address] Care Team Providers Care Maintenance Of Way Clerk Name Role Phone Charlie Ventura MD Primary Care Provider Valerie Moscoso MD Primary Care Provider [phone] Encounter Details Date Type Department Care Team Description 06/16/2018 Release of Information Medical Records [address] [place] [id number] Abstract, Provider Social History Tobacco Use Types Packs/Day Years Used Date Smoking Tobacco: Former Cigarettes Q uit: 12/14/2016 Smokeless Tobacco: Never Alcohol Use Standard Drinks/Week Comments Yes 0 (1 standard drink = 0.6 oz pure alcohol) socially, every couple months has couple drinks democrat Sex Assigned at Date Recorded Not on file Job Start Date Occupation Industry Not on file Not on file Not on file documented as of this encounter Plan of Treatment Not on file documented as of this encounter Visit Diagnoses Not on filedocumented in this encounter Care Teams Maintenance Of Way Clerk Relationship Specialty Start Date End Date Charlie Ventura MD PCP - General Internal Medicine 06/14/18 12/30/20 Valerie Hobbs MD [address] [place] [phone] PCP - General Internal Medicine 12/31/20 documented as of this encounter
--- OUTSIDE RECORDS SUMMARY | 2024-08-30 08:12 | XMS_ITS | Encounter Summary ---
Author Organization [facility] Address [address] [place] [address] Care Team Providers Care Wrapper Layer Name Role Phone Charlie Ventura MD Primary Care Provider Valerie Moscoso MD Primary Care Provider [phone] Reason for Visit * Reason Onset Date Comments refill request 08/01/2019 Encounter Details Date Type Department Care Team Description 08/01/2019 Refill Medicine/Pediatrics - [address] [phone] Charlie Ventura MD refill request Social History Tobacco Use Types Packs/Day Years Used Date Smoking Tobacco: Former Cigarettes Q uit: 12/14/2016 Smokeless Tobacco: Never Alcohol Use Standard Drinks/Week Comments Yes 0 (1 standard drink = 0.6 oz pure alcohol) socially, every couple months has couple drinks constitution party Sex Assigned at Date Recorded Not on file Job Start Date Occupation Industry Not on file Not on file Not on file documented as of this encounter Miscellaneous Notes * Telephone Encounter - Whitney Gusman M.A. - 08/03/2019 9:20 AM EST RX sent electronically Message left for patient to call the office back to have her Vitamin D levels rechecked prior--Please inform patient to come in and have labs completed * Telephone Encounter - Charlie Ventura MD - 08/03/2019 8:28 AM EST Needs to repeat thryoid labs. Sent all scripts except vit D, needs to repeat vit D lab. * Telephone Encounter - Kathleen Goldman M.A. - 08/01/2019 10:11 AM EST Last OV 05/31/19 * Telephone Encounter - Penny James - 08/01/2019 10:05 AM EST Patient would like script to be: E-PRESCRIBED/FAXED TO PHARMACY WHEN WAS THE PATIENT'S LAST APPOINTMENT IN ADULT MEDICINE? 05/31/19 WHEN WAS THE LAST TIME THE PATIENT SAW THEIR PCP? Same as above Does patient have an upcoming appointment? no (THE MEDICATION REQUESTED IS ON THE MED LIST ABOVE) All of the medications requested were on the CURRENT MEDS list Did you check the Pharmacy information above?: NO Patient wants: 90 -day supply Is this a mail order prescription request ? NO If the refill is from a FAXED refill request what is the RX # listed on the fax? N/A Patients current insurance carrier is: Payor: [employer] / Plan: [employer] / Product Type: MEDICAID RISK documented in this encounter Plan of Treatment Not on file documented as of this encounter Visit Diagnoses Diagnosis Acquired hypothyroidism Unspecified hypothyroidism Insomnia, unspecified type Vitamin D deficiency Unspecified vitamin D deficiency documented in this encounter Care Teams Wrapper Layer Relationship Specialty Start Date End Date Charlie Ventura MD PCP - General Internal Medicine 06/14/18 12/30/20 Valerie Hobbs MD [address] [place] [phone] PCP - General Internal Medicine 12/31/20 documented as of this encounter
--- OUTSIDE RECORDS SUMMARY | 2024-08-30 08:12 | XMS_ITS | Encounter Summary ---
Author Organization [facility] Address [address] [place] [address] Care Team Providers Care Plastics Process Hand Name Role Phone Charlie Ventura MD Primary Care Provider Valerie Moscoso MD Primary Care Provider [phone] Encounter Details Date Type Department Care Team Description 01/19/2020 Hospital Medical Records [address] [place] [id number] Pritesh Montilla MD Social History Tobacco Use Types Packs/Day Years Used Date Smoking Tobacco: Former Smokeless Tobacco: Never Comments:started age 15; max 1/4 PPD; quit age 18 Alcohol Use Standard Drinks/Week Comments Yes 0 (1 standard drink = 0.6 oz pur e alcohol) holidays - rarely Education Answer Date Recorded What is the highest level of school you have completed or the highest degree you have received? GED or equivalent Sex Assigned at Date Recorded Not on file Job Start Date Occupation Industry Not on file Not on file Not on file documented as of this encounter Plan of Treatment Not on file documented as of this encounter Visit Diagnoses Not on filedocumented in this encounter Care Teams Plastics Process Hand Relationship Specialty Start Date End Date Charlie Ventura MD PCP - General Internal Medicine 06/14/18 12/30/20 Valerie Hobbs MD [address] [place] [phone] PCP - General Internal Medicine 12/31/20 documented as of this encounter
--- OUTSIDE RECORDS SUMMARY | 2024-08-30 08:12 | XMS_ITS | Encounter Summary ---
[facility] Address [address] [place] [address] Care Team Providers Care Child Care Giver Name Role Phone Valerie Hobbs MD Primary Care Provider [phone] Reason for Visit * Reason Onset Date Comments LAB WORK 03/29/2021 DIABETES Encounter Details Date Type Department Care Team Description 03/29/2021 Telephone Adult Medicine [address] [address] Vivian Wu PA-C [address] [place] [id number] LAB WORK (DIABETES) Social History Tobacco Use Types Packs/Day Years [...] file Not on file Not on file COVID-19 Exposure Response Date Recorded In the last month, have you been in contact with someone who was confirmed or suspected to have Coronavirus / COVID-19? No / Unsure 03/27/2021 3:01 PM EDT documented as of this encounter Miscellaneous Notes * Telephone Encounter - Vivian Wu PA-C - 03/29/2021 4:49 PM EDT Received return call from patient. We discussed elevation in hemoglobin A1c from 6.5% to 8%. Therefore, discussed starting Metformin 500 mg nightly and this is prescribed. She will follow back in 3 months for repeat labs and office visit. Vivian Wu PA-C documented in this encounter Plan of Treatment Not on file documented as of this encounter Visit Diagnoses Not on filedocumented in this encounter Care Teams Child Care Giver Relationship Specialty Start Date End Date Valerie Hobbs MD [address] [place] [phone] PCP - General Internal Medicine 12/31/20 documented as of this encounter
--- OUTSIDE RECORDS SUMMARY | 2024-08-30 08:12 | XMS_ITS | Clinical Summary ---
Author Organization [facility] Address [address] [place] [address] Care Team Providers Care Supervising Deputy Name Role Phone Valerie Hobbs MD Primary Care Provider [phone] Allergies Active Allergy Reactions Severity Noted Date Comments Morphine Itching/Pruritus 06/15/2018 Ok with hydromorphine Prednisone Hives/Urticaria,Dizzy 06/15/2018 Medications Medication Sig Dispensed Refills Start Date End Date Status Multiple Vitamins-Minerals (MULTIPLE VITAMINS/WOMENS) Tab Take 1 Tab by mouth daily. 0 Active ALBUTEROL SULFATE (ProAir HFA) 108 (90 Base) MCG/ACT Aero Soln Inhale 2 Puffs into the lungs every 4 hours as needed for Wheezing or Shortness of Breath. 1 g 0 03/27/2021 Active levothyroxine (SYNTHROID, LEVOTHROID) 50 MCG tablet Take 1 tablet by mouth daily for 360 days. 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 10/17/2018 No BRETT or PLMD on polysomnogram. Asthma 06/15/2018 Chronic low back pain 06/15/2018 Hyperlipidemia Resolved Problems Problem Noted Date Resolved Date Astigmatism 05/31/2019 07/08/2021 Irritable bowel syndrome with diarrhea 9 06/18/2020 Elevated blood pressure read ing without diagnosis of hypertension 01/11/2019 07/08/2021 IFG (impaired fasting glucose) 11/29/2018 1 Dysfunction of both eustachian tubes 06/15/2018 07/08/2021 Morbid obesity with BMI of 50.0-59.9, adult 12/0 11/201704/12/2019 Abnormal TSH 11/29/2018 Immunizations Name Administration Dates Next Due COVID-19 (Pfizer) 12/16/2020,11/25/2020 Influenza Vaccine-preservati ve Free-quadrivalent 4 Years 06/18/2020 Pneumoccoccal(Adult) Polysaccharide PPSV23 03/27 Tdap 03/27/2021 Family History Medical History Relation Name Comments CA Breast Aunt 1 maternal congential heart defect Aunt 2 maternal Schizophrenia Brother 1/2 sibling seizure disord er, hypothyroid Alcohol Abuse Father Brain Cancer Maternal Grandfather EtOH ab use CAD Maternal Grandmother Melanoma Mother T2DM, CKD, HTN, bipolar, seizures, hypothyroid No Known Problems Paternal Grandfather unknown No Known Problems Paternal Grandmother unknown Relation Name Status Comments Aunt 1 maternal Alive Aunt 2 maternal Alive Brother 1/2 sibling Alive Father Maternal Grandfather Maternal Grandmother Mother Alive Paternal Grandfather unknown Other Paternal Grandmother unknown Other Social History Tobacco Use Types Packs/Day Years [...] file Not on file Not on file Last Filed Vital Signs Vital Sign Reading Time Taken Comments Blood Pressure 138/78 03/27/2021 3:15 PM EDT cuf f Pulse 111 03/27/2021 3:15 PM EDT Temperature 36.4 ??C (97.5 ??F) 03/27/2021 3:15 PM ED T Respiratory Rate 20 03/20/2021 3:01 PM EDT Oxygen Saturation 95% 03/27/2021 3:15 PM EDT Inhaled Oxygen Concentration - - Weight 185.9 kg (409 lb 12.8 oz) 03/27/2021 3:15 PM EDT Height 172.7 cm (5' 8 ) 06/18/2020 1:31 PM EST Body Mass Index 62.31 06/18/2020 1:31 PM EST Plan of Treatment Health Maintenance Due Date Last Done Comments DIABETES: ANNUAL FOOT EXAM 10/29/2011 DIABETES: BLOOD SUGAR CONTRO L TEST (HGBA1C) 09/28/2021 06/30/2021, 03/27/2021, 04/12/2019, Additional history exists DIABETES/HEART DISEASE: OSIRIS HOWE CHOLESTEROL (LDL) 03/27/2022 03/27/2021, 11/28/2018, 08/12/2018 DIABETES: ANNUAL URINE PROTE IN TEST (MICROALBUMIN) 03/27/2022 03/27/2021 DIABETES: ANNUAL EYE EXAM 04/16/2022 04/16/2021 Covid-19 Vaccine (2022-2 4 season) 2024 12/16/2020, 11/25/2020 INFLUENZA (#1) 2024 06/18/2020, 02/2020 (Completed), 08/10/2018 (Refused) CERVICAL CANCER SCREENING 03/20/2024 03/20/2021 BMI CHECK/ADVISE 07/12/2024 03/27/2021, 03/2021, 03/20/2021, Additional history exists DEPRESSION SCREENING/FOLLOWUP 07/12/2024, 07/29/2020, 04/08/2020, Additional history exists SOCIAL NEEDS SCREENING 07/12/2024 08/10/2018 BASELINE HEALTH EXAM 18-39 03/27/202603/27, 03/27/2021, 08/10/2018 DTAP/TDAP/TD (2 - Td or Tdap) 03/27/2031 03/27/2021 PNEUMOCOCCAL VACCINE FOR HIG H RISK PATIENTS (#2) 2058 03/27/2021 Care Teams Supervising Deputy Relationship Specialty Start Date End Date Valerie Hobbs MD [address] [place] [id number] PCP - General Internal Medicine 12/31/20
[2024-08-30 08:17] VITALS: BMI 42.6
--- NOTE | 2024-08-30 08:17 | A.OFFVIS_ITS ---
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 Required: No Information Interpreted: non-clinical & clinical Manager Strategic: Manager Strategic Present (Isa PADRON) Accompanied by: Self / Same As Patient Allergies prednisone Allergy (Intermediate, Verified 08/30/24 08:19) Itching Is last menstrual period known: Yes Last menstrual period: 08/15/24 HPI Comments Details: Presenting complaining of a bulge per vagina especially upon Valsalva maneuver no other associated symptoms PFSH Medical History ADHD (attention deficit hyperactivity disorder), combined type Vitamin D deficiency Reactive airway disease Morbid obesity with BMI of 45.0-49.9, adult Allergic rhinitis Anxiety Surgical History History of lumbar laminectomy for spinal cord decompression Hx of tonsillectomy No pertinent past surgical history Family History Father FH: mental illness Brother FH: mental illness Other Brain cancer Diabetes Hypertension Skin cancer Substance abuse Social History Housing: House Alcohol intake: never Patient Tobacco Use Status: Former Tobacco user e-Cigarette/Vaping Use: Currently Using Second Hand Smoke Exposure: Yes Substance Use Type: Marijuana service: No Current occupational status: employed and unemployed Current occupational exposures/hazards: No Cognitive needs: No Hearing needs: No Vision needs: No Female Reproductive History Menstrual Age of Menarche: 10 Date of last menstrual period: 08/15/24 Review of Systems Const All systems reviewed & are unremarkable except as noted in HPI and below Physical Exam Vital Signs: BMI result Body Mass Index 42.6 General: Yes no CVA tenderness External Female Exam: normal external appearance and normal appearance of the urethra Speculum Exam - Vagina: normal appearance of the vagina, normal palpation, no lesions, no masses and other (Mild rectocele) Speculum Exam - Cervix: normal appearance of the cervix, normal palpation, no lesions, no masses and nontender Bimanual exam- vagina & uterus: normal bimanual exam, normal palpation, uterine size normal, normal palpation, uterine shape normal, No Cervical tenderness present and non-tender Bimanual Exam- Adnexa, other: normal adnexae Back/Spine/Pelvis Back: no CVA tenderness Assessment & Plan Assessment & Plan (1) Rectocele: Code(s): N81.6 - Rectocele Category: Medical Plan: Discussed with the patient the finding on pelvic exam, mild rectocele and options of treatment including expectant management, pessary or surgical treatment. All pros and cons, risks and benefits of each were discussed with the patient, the patient decided to proceed with expectant management at the time . Instructions given the patient to call if symptoms worsened. All questions answered, patient verbalized Coding Level of Care Code Est Pt Level 3 (70993) Diagnoses Rectocele N81.6
== END 2024-08-30 09:10 | disposition home or self-care (01) ==
LOC: HO.HWS 08:06
PROVIDERS: PCP Internal Medicine; Visit Provider Obstetrics & Gynecology
DX: N81.6 Rectocele (principal)
CPT/HCPCS: 99213

== ENCOUNTER → 2024-08-30 08:06 | Outpatient (BNVA) | payer OTHER, SELFPAY | PROVIDERS: PCP Internal Medicine; Visit Provider Obstetrics & Gynecology | DX: N81.6 Rectocele (principal) | CPT/HCPCS: 99212 ==

== ENCOUNTER 2024-09-01 12:15 | Outpatient (AMB) | payer OTHER, SELFPAY ==
--- NOTE | 2024-09-01 11:40 | MHC.OFFVISPS ---
Intake Intake Visit Reasons: f/u consultation Rebeamer Required: No Allergies prednisone Allergy (Intermediate, Verified 08/30/24 08:19) Itching Medication List - Last Reconciled 09/01/24 by Zoila Adame APRN cetirizine 10 mg PO DAILY PRN 90 days cholecalciferol (vitamin D3) 50 mcg PO DAILY 90 days clonidine HCl 0.1 mg PO BEDTIME clotrimazole-betamethasone 1-0.05 % 1 appl topical BID 5 days dextroamphetamine-amphetamine 25 mg ER (Adderall XR) 25 mg PO DAILY levonorgestrel (Mirena) intrauterine saffron extract 2 to 4 tablets orally daily; Ventolin HFA 90 mcg/actuation (albuterol sulfate) 2 puffs inhalation Q6H PRN 30 days NS HPI- Psychiatric Chief Complaint: f/u consultation HPI Narrative: Pt reports worsened ADHD symptoms and an increase in anxiety/saadness. pt reports the extended release adderall is not helping as much as the IR adderall was; she is not getting things done around the house; the laundry, dishes cleaning are behind; she is tearful; she is sleeping 7-8 hours. she denies side effects; denies SI or HI. just started on effexor 37.5mg bedtime tolerating well. Past Psychiatric History: In and out of therapy her whole life- she says most of the time the focus was on her brother and mother who had high needs; Pt IPLOC 3-4 times in [place] in teens. Pt tried to commit suicide at age 12 by cutting wrists and recalls being told she was attention seeking; at age 14 she overdosed on melatonin. NOTE: father by overdose when pt was 13 or 14 yrs old. Pt says she tried to overdose 2-3 more times between 14 and 16 to . at 17 yo pt checked herself into a psychiatric hospital due to SI. She reports being on several meds in the past and had negative reactions sertraline- agitation hydrozyibe - ineffective abilify= increased anger riperdal- can't recall depakote- helped a little but sleepy seroquel - ineffective Subjective Subjective Subjective Medication Compliance: Yes Side effects from medications: No Review of Systems Medical Review of Systems: unchanged Mental Status Exam Mental Status Exam Patient Appearance: Well Grooomed Patient Orientation: Person, Place, Time and Situation Level of Consciousness: Awake, Appropriate and Alert Patient Behavior: Appropriate and Anxious Mood Description: Anxious and Sad Affect Description: Anxious and Sad Patient Cognition Impaired: No Ability to Follow Directions: Good Speech Pattern: Clear and Appropriate Memory Description: Intact Hallucinations: None Delusions: Not Present Thought Process: Intact and Distracted Thought Content: positive for Intact Judgement: Fair Telehealth Telehealth Telehealth Platform: Other (please specify) ([email or web address]) Location of provider rendering services: practice address Location of patient: address on file Patient Identification confirmed using: Name, : Yes Telehealth method: video Patient verbally consented to treatment: Yes Patient verbally consented to billing insurance company: Yes Patient informed of any privacy concerns related to visit: Yes Minutes spent on Phone/Video with Pt.: 30 Assessment and Plan Assessment & Plan (1) Insomnia: Status: Acute Qualifiers: Insomnia type: unspecified Qualified Code(s): G47.00 - Insomnia, unspecified Code(s): G47.00 - Insomnia, unspecified (2) ADHD (attention deficit hyperactivity disorder), combined type: Status: Acute Code(s): F90.2 - Attention-deficit hyperactivity disorder, combined type Plan stop extended release adderall start adderall 20 mg BID return in 8 weeks Medications: New dextroamphetamine-amphetamine 20 mg (Adderall) Partial Fill upon patient request. 20 mg PO BID 60 tabs 0RF clonidine HCl 0.1 mg PO BEDTIME 90 tabs 0RF Counseling and coordination of Care Pt. Self Management counseling: Maintenance-social rhythm, Mod caffeine/ETOH intake, Nutrition education and improvement, Sleep hygiene, Behavior activation, General coping skills and Problem solving Medication management counseling: Effectiveness, Side effects, Dosing range, Duration, Drug interaction and Adherence Diagnosis and Prognosis Counseling: Accuracy of diagnosis, Prognosis over time, Impact of diagnosis on life functions, Impact of family relationship, Problematic behaviors secondary to diagnosis and Adequacy of current interventions Details: I spent 38 minutes reviewing the record, seeing the patient and documenting in the medical record. Counseling provided to the patient/caregiver as outlined below. Addressed patient/caregiver concerns regarding current medication regime including effective adherence. Addressed patient/caregiver concerns regarding diagnosis and prognosis including accuracy of diagnosis, prognosis over time, impact of diagnosis. Addressed patient/caregiver concerns regarding impact of recent stressors. [facility] Medical History ADHD (attention deficit hyperactivity disorder), combined type Vitamin D deficiency Reactive airway disease Morbid obesity with BMI of 45.0-49.9, adult Allergic rhinitis Anxiety Surgical History History of lumbar laminectomy for spinal cord decompression Hx of tonsillectomy No pertinent past surgical history Family History Father FH: mental illness Brother FH: mental illness Other Brain cancer Diabetes Hypertension Skin cancer Substance abuse Social History Housing: House Alcohol intake: never Patient Tobacco Use Status: Former Tobacco user e-Cigarette/Vaping Use: Currently Using Second Hand Smoke Exposure: Yes Substance Use Type: Marijuana service: No Current occupational status: employed and unemployed Current occupational exposures/hazards: No Cognitive needs: No Hearing needs: No Vision needs: No Social History: lives with and 2 yo child Substance History: THC in evenings; no other substance use including etoh Trauma History: yes childhood Coding Level of Care Code Tele Est Pt Level 4 (33173) Diagnoses Insomnia, unspecified type G47.00 Insomnia type: unspecified ADHD (attention deficit hyperactivity disorder), combined type F90.2
== END 2024-09-01 12:16 | disposition home or self-care (01) ==
LOC: HO.HOP 12:15
PROVIDERS: PCP Internal Medicine; Visit Provider Clinical Nurse Specialist Psychiatric/Mental Health
DX: F90.2 Attention-deficit hyperactivity disorder, combined type (principal); G47.00 Insomnia, unspecified
CPT/HCPCS: 99214

== ENCOUNTER 2024-10-26 11:27 | Outpatient (AMB) | payer OTHER, SELFPAY ==
--- NOTE | 2024-10-26 11:28 | MHC.OFFVISPS ---
Intake Intake Visit Reasons: f/u consultation Allergies prednisone Allergy (Intermediate, Verified 08/30/24 08:19) Itching Medication List - Last Reconciled 10/26/24 by Zoila Adame APRN cetirizine 10 mg PO DAILY PRN 90 days cholecalciferol (vitamin D3) 50 mcg PO DAILY 90 days clonidine HCl 0.1 mg PO BEDTIME clotrimazole-betamethasone 1-0.05 % 1 appl topical BID 5 days dextroamphetamine-amphetamine 20 mg (Adderall) 20 mg PO BID levonorgestrel (Mirena) intrauterine saffron extract 2 to 4 tablets orally daily; Ventolin HFA 90 mcg/actuation (albuterol sulfate) 2 puffs inhalation Q6H PRN 30 days NS HPI- Psychiatric Chief Complaint: f/u consultation HPI Narrative: pt reports much improved. mood stable and happy most of the time; adderall is helping pt start and finish projects; more able to get tasks done which is increasing her happiness and helping her relationship. no SI or HI, no reported side effects; not sleeping soundly even with clonidine 0.1mg at bedtime Past Psychiatric History: In and out of therapy her whole life- she says most of the time the focus was on her brother and mother who had high needs; Pt IPLOC 3-4 times in [place] in teens. Pt tried to commit suicide at age 12 by cutting wrists and recalls being told she was attention seeking; at age 14 she overdosed on melatonin. NOTE: father by overdose when pt was 13 or 14 yrs old. Pt says she tried to overdose 2-3 more times between 14 and 16 to . at 17 yo pt checked herself into a psychiatric hospital due to SI. She reports being on several meds in the past and had negative reactions sertraline- agitation hydrozyibe - ineffective abilify= increased anger riperdal- can't recall depakote- helped a little but sleepy seroquel - ineffective Subjective Subjective Subjective Medication Compliance: Yes Side effects from medications: No Review of Systems Medical Review of Systems: unchanged Mental Status Exam Mental Status Exam Patient Appearance: Well Grooomed and Appropriate Patient Orientation: Person, Place, Time and Situation Level of Consciousness: Awake and Appropriate Patient Behavior: Appropriate Mood Description: Happy Affect Description: Happy Patient Cognition Impaired: No Ability to Follow Directions: Good Speech Pattern: Clear Memory Description: Intact Hallucinations: None Delusions: Not Present Thought Process: Intact, Distracted and Goal Oriented Thought Content: positive for Intact, positive for Goal Oriented and positive for Loose Associations Judgement: Good Telehealth Telehealth Telehealth Platform: Other (please specify) ([employer].) Location of provider rendering services: practice address Location of patient: address on file Patient Identification confirmed using: Name, : Yes Telehealth method: video Patient verbally consented to treatment: Yes Patient verbally consented to billing insurance company: Yes Patient informed of any privacy concerns related to visit: Yes Minutes spent on Phone/Video with Pt.: 28 Assessment and Plan Assessment & Plan (1) ADHD (attention deficit hyperactivity disorder), combined type: Status: Acute Code(s): F90.2 - Attention-deficit hyperactivity disorder, combined type Plan continue adderall trial of clonidine 0.2mg at bedtime Medications: Changed From clonidine HCl 0.1 mg PO BEDTIME 90 tabs 0RF To clonidine HCl 0.2 mg (2 x 0.1 mg) PO BEDTIME 90 tabs 0RF Refilled dextroamphetamine-amphetamine 20 mg (Adderall) Partial Fill upon patient request. 20 mg PO BID 60 tabs 0RF Counseling and coordination of Care Pt. Self Management counseling: Sleep hygiene and General coping skills Medication management counseling: Effectiveness, Side effects, Dosing range, Duration, Drug interaction and Adherence Diagnosis and Prognosis Counseling: Accuracy of diagnosis, Prognosis over time, Impact of diagnosis on life functions, Impact of family relationship, Problematic behaviors secondary to diagnosis and Adequacy of current interventions Details: I spent 35 minutes reviewing the record, seeing the patient and documenting in the medical record. Counseling provided to the patient/caregiver as outlined below. Addressed patient/caregiver concerns regarding current medication regime including effective adherence. Addressed patient/caregiver concerns regarding diagnosis and prognosis including accuracy of diagnosis, prognosis over time, impact of diagnosis. Addressed patient/caregiver concerns regarding impact of recent stressors. [facility] Medical History ADHD (attention deficit hyperactivity disorder), combined type Vitamin D deficiency Reactive airway disease Morbid obesity with BMI of 45.0-49.9, adult Allergic rhinitis Anxiety Surgical History History of lumbar laminectomy for spinal cord decompression Hx of tonsillectomy No pertinent past surgical history Family History Father FH: mental illness Brother FH: mental illness Other Brain cancer Diabetes Hypertension Skin cancer Substance abuse Social History Housing: House Alcohol intake: never Patient Tobacco Use Status: Former Tobacco user e-Cigarette/Vaping Use: Currently Using Second Hand Smoke Exposure: Yes Substance Use Type: Marijuana service: No Current occupational status: employed and unemployed Current occupational exposures/hazards: No Cognitive needs: No Hearing needs: No Vision needs: No Social History: lives with and 2 yo child Substance History: THC in evenings; no other substance use including etoh Trauma History: yes childhood Coding Level of Care Code Tele Est Pt Level 4 (63145) Diagnoses ADHD (attention deficit hyperactivity disorder), combined type F90.2
--- OUTSIDE RECORDS SUMMARY | 2024-10-26 14:17 | XMS_ITS | Encounter Summary ---
Author Organization [facility] [facility] Address [address] [place] [address] Care Team Providers Care Bus And Trolley Dispatcher Name Role Phone Charlie Ventura MD Primary Care Provider Valerie Moscoso MD Primary Care Provider [phone] Encounter Details Date Type Department Care Team Description 12/18/2019 Refill Gastroenterology - [address] [place] [id number] Pritesh Montilla MD Social History Tobacco Use Types Packs/Day Years Used Date Smoking Tobacco: Former Cigarettes Q uit: 12/14/2016 Smokeless Tobacco: Never Alcohol Use Standard Drinks/Week Comments Yes 0 (1 standard drink = 0.6 oz pure alcohol) socially, every couple months has couple drinks libertarian Sex Assigned at Date Recorded Not on file Job Start Date Occupation Industry Not on file Not on file Not on file documented as of this encounter Plan of Treatment Not on file documented as of this encounter Visit Diagnoses Not on filedocumented in this encounter Care Teams Bus And Trolley Dispatcher Relationship Specialty Start Date End Date Charlie Ventura MD PCP - General Internal Medicine 06/14/18 12/30/20 Valerie Hobbs MD [address] [place] [phone] PCP - General Internal Medicine 12/31/20 documented as of this encounter
--- OUTSIDE RECORDS SUMMARY | 2024-10-26 14:17 | XMS_ITS | Encounter Summary ---
Author Organization [facility] Address [address] [place] [address] Care Team Providers Care Tradeshow Worker Name Role Phone Charlie Ventura MD Primary Care Provider Valerie Moscoso MD Primary Care Provider [phone] Encounter Details Date Type Department Care Team Description 01/19/2020 Hospital Medical Records [address] [place] [id number] Pritesh Montilla MD Social History Tobacco Use [...] on filedocumented in this encounter Care Teams Tradeshow Worker Relationship Specialty Start Date End Date Charlie Ventura MD PCP - General Internal Medicine 06/14/18 12/30/20 Valerie Hobbs MD [address] [place] [id number] PCP - General Internal Medicine 12/31/20 documented as of this encounter
--- OUTSIDE RECORDS SUMMARY | 2024-10-26 14:17 | XMS_ITS | Encounter Summary ---
Author Organization [employer] [facility] Address [address] [place] [address] Care Team Providers Care Manager Java Name Role Phone Charlie Ventura MD Primary Care Provider Valerie Moscoso MD Primary Care Provider [phone] Encounter Details Date Type Department Care Team Description 06/16/2018 Release of Information Medical Records [address] [place] [id number] Abstract, Provider Social History Tobacco Use Types Packs/Day Years Used Date Smoking Tobacco: Former Cigarettes Q uit: 12/14/2016 Smokeless Tobacco: Never Alcohol Use Standard Drinks/Week Comments Yes 0 (1 standard drink = 0.6 oz pure alcohol) socially, every couple months has couple drinks alliance party Sex Assigned at Date Recorded Not on file Job Start Date Occupation Industry Not on file Not on file Not on file documented as of this encounter Plan of Treatment Not on file documented as of this encounter Visit Diagnoses Not on filedocumented in this encounter Care Teams Manager Java Relationship Specialty Start Date End Date Charlie Ventura MD PCP - General Internal Medicine 06/14/18 12/30/20 Valerie Hobbs MD [address] [place] [id number] PCP - General Internal Medicine 12/31/20 documented as of this encounter
--- OUTSIDE RECORDS SUMMARY | 2024-10-26 14:17 | XMS_ITS | Encounter Summary ---
[facility] Organization [facility] Address [address] [place] [address] Care Team Providers Care Felt Machine Mechanic Name Role Phone Charlie Ventura MD Primary Care Provider Valerie Moscoso MD Primary Care Provider [phone] Reason for Visit * Reason Onset Date Comments refill request 08/01/2019 Encounter Details Date Type Department Care Team Description 08/01/2019 Refill Medicine/Pediatrics - [address] [phone] Charlie Ventura MD refill request Social History [...] N/A Patients current insurance carrier is: Payor: [employer] / Plan: [employer] / Product Type: MEDICAID RISK documented in this encounter Plan of Treatment Not on file documented as of this encounter Visit Diagnoses Diagnosis Acquired hypothyroidism Unspecified hypothyroidism Insomnia, unspecified type Vitamin D deficiency Unspecified vitamin D deficiency documented in this encounter Care Teams Felt Machine Mechanic Relationship Specialty Start Date End Date Charlie Ventura MD PCP - General Internal Medicine 06/14/18 12/30/20 Valerie Hobbs MD [address] [place] [id number] PCP - General Internal Medicine 12/31/20 documented as of this encounter
--- OUTSIDE RECORDS SUMMARY | 2024-10-26 14:17 | XMS_ITS | Encounter Summary ---
Author Organization [facility] Address [address] [place] [address] Care Team Providers Care Inspector Watch Assembly Name Role Phone Charlie Ventura MD Primary Care Provider Valerie Moscoso MD Primary Care Provider [phone] Encounter Details Date Type Department Care Team Description 10/23/2018 Orders Only Medical Records [address] [place] [phone] Leeanne Easley PA-C Social History Tobacco Use Types Packs/Day Years Used Date Smoking Tobacco: Former Cigarettes Q uit: 12/14/2016 Smokeless Tobacco: Never Alcohol Use Standard Drinks/Week Comments Yes 0 (1 standard drink = 0.6 oz pure alcohol) socially, every couple months has couple drinks green party Sex Assigned at Date Recorded Not on file Job Start Date Occupation Industry Not on file Not on file Not on file documented as of this encounter Plan of Treatment Not on file documented as of this encounter Procedures Procedure Name Priority Date/Time Associated Diagnosis Comments OUTSIDE SLEEP STUDY Routine 10/16/2018 documented in this encounter Results * OUTSIDE SLEEP STUDY (10/16/2018) Leeanne Easley PA-C PULMONOLOGY documented in this encounter Visit Diagnoses Not on filedocumented in this encounter Care Teams Inspector Watch Assembly Relationship Specialty Start Date End Date Charlie Ventura MD PCP - General Internal Medicine 06/14/18 12/30/20 Valerie Hobbs MD [address] [place] [id number] PCP - General Internal Medicine 12/31/20 documented as of this encounter
--- OUTSIDE RECORDS SUMMARY | 2024-10-26 14:17 | XMS_ITS | Encounter Summary ---
Author Organization [facility] Address [address] [place] [address] Care Team Providers Care Dietitian Assistant Name Role Phone Charlie Ventura MD Primary Care Provider Valerie Moscoso MD Primary Care Provider [phone] Encounter Details Date Type Department Care Team Description 08/05/2020 Chip Crusher Operator Report Medical Records [address] [place] [id number] Vivian Simon Social History Tobacco Use Types Packs/Day Years Used Date Smoking Tobacco: Former Cigarettes Q uit: 12/14/2016 Smokeless Tobacco: Never Comments:quit 3 yrs ago Alcohol Use Standard Drinks/Week Comments Yes 0 (1 standard drink = 0.6 oz pur e alcohol) holidays Sex Assigned at Date Recorded Not on file Job Start Date Occupation Industry Not on file Not on file Not on file documented as of this encounter Plan of Treatment Not on file documented as of this encounter Visit Diagnoses Not on filedocumented in this encounter Care Teams Dietitian Assistant Relationship Specialty Start Date End Date Charlie Ventura MD PCP - General Internal Medicine 06/14/18 12/30/20 Valerie Hobbs MD [address] [place] [address] [phone] PCP - General Internal Medicine 12/31/20 documented as of this encounter
--- OUTSIDE RECORDS SUMMARY | 2024-10-26 14:17 | XMS_ITS | Encounter Summary ---
Author Organization [facility] Address [address] [place] [address] Care Team Providers Care Vice President For Philanthropy Name Role Phone Valerie Hobbs MD Primary Care Provider [phone] Encounter Details Date Type Department Care Team Description 07/01/2021 Orders Only Adult Medicine [facility] [address] [place] [address] [phone] Vivian Wu PA-C [address] [place] [address] [phone] Acquired hypothyroidism (Primary Dx) Social History Tobacco Use Types Packs/Day Years [...] as of this encounter Plan of Treatment Scheduled Orders Name Type Priority Associated Diagnoses Orde r Schedule TSH Lab Routine Acquired hypothyroidism Expected: 09/12/2021, Expires: 10/30/2021 documented as of this encounter Visit Diagnoses Diagnosis Acquired hypothyroidism- Primary Unspecified hypothyroidism documented in this encounter Care Teams Vice President For Philanthropy Relationship Specialty Start Date End Date Valerie Hobbs MD [address] [place] [id number] PCP - General Internal Medicine 12/31/20 documented as of this encounter"
== END 2024-10-26 11:27 | disposition home or self-care (01) ==
LOC: HO.HOP 11:27
PROVIDERS: PCP Internal Medicine; Visit Provider Clinical Nurse Specialist Psychiatric/Mental Health
DX: F90.2 Attention-deficit hyperactivity disorder, combined type (principal)
CPT/HCPCS: 98006

== ENCOUNTER → 2024-10-26 11:27 | Outpatient (BNVA) | payer OTHER, SELFPAY | PROVIDERS: PCP Internal Medicine; Visit Provider Clinical Nurse Specialist Psychiatric/Mental Health ==

== ENCOUNTER 2025-01-25 15:35 | Outpatient (AMB) | payer OTHER, SELFPAY ==
--- NOTE | 2025-01-25 15:48 | A.OFFPSYCH_ITS ---
Intake Intake Visit Reasons: follow up Rn Operating Room Required: No Allergies prednisone Allergy (Intermediate, Verified 08/30/24 08:19) Itching Medication List - Last Reconciled 01/25/25 by Zoila Adame APRN cetirizine 10 mg PO DAILY PRN 90 days cholecalciferol (vitamin D3) 50 mcg PO DAILY 90 days clonidine HCl 0.2 mg (2 x 0.1 mg) PO BEDTIME clotrimazole-betamethasone 1-0.05 % 1 appl topical BID 5 days dextroamphetamine-amphetamine 20 mg (Adderall) 20 mg PO BID levonorgestrel (Mirena) intrauterine saffron extract 2 to 4 tablets orally daily; Ventolin HFA 90 mcg/actuation (albuterol sulfate) 2 puffs inhalation Q6H PRN 30 days NS HPI- Psychiatric Chief Complaint: follow up HPI Narrative: pt reports adderall helped but she feels like it was only helpful at certain times of day; she has established new routines which help; she feels the IR was too much and she would like to try a lower dose extended release with a booster IR . She has had no palpitations, SOB, or roc pain; she is exercising, she is eating 3 meals a day. she report stable good mood; no SI or HI; moderate anxiety. Past Psychiatric History: In and out of therapy her whole life- she says most of the time the focus was on her brother and mother who had high needs; Pt IPLOC 3-4 times in [place] in teens. Pt tried to commit suicide at age 12 by cutting wrists and recalls being told she was attention seeking; at age 14 she overdosed on melatonin. NOTE: father by overdose when pt was 13 or 14 yrs old. Pt says she tried to overdose 2-3 more times between 14 and 16 to . at 17 yo pt checked herself into a psychiatric hospital due to SI. She reports being on several meds in the past and had negative reactions sertraline- agitation hydrozyibe - ineffective abilify= increased anger riperdal- can't recall depakote- helped a little but sleepy seroquel - ineffective Subjective Subjective Subjective Medication Compliance: Yes Side effects from medications: No Review of Systems Medical Review of Systems: unchanged Mental Status Exam Mental Status Exam Patient Appearance: Well Grooomed and Appropriate Patient Orientation: Person, Place, Time and Situation Level of Consciousness: Awake and Appropriate Patient Behavior: Appropriate and Talkative Mood Description: Cheerful Affect Description: Cheerful Patient Cognition Impaired: No Ability to Follow Directions: Good Speech Pattern: Clear, Appropriate and Excessive Memory Description: Intact Hallucinations: None Delusions: Not Present Thought Process: Intact, Distracted and Goal Oriented Thought Content: positive for Intact, positive for Goal Oriented and positive for Loose Associations Judgement: Good Assessment and Plan Assessment & Plan (1) ADHD (attention deficit hyperactivity disorder), combined type: Status: Acute Code(s): F90.2 - Attention-deficit hyperactivity disorder, combined type Plan see meds below return in 4 weeks obtain EKG and bloos work Medications: New dextroamphetamine-amphetamine 20 mg ER (Adderall XR) Partial Fill upon patient request. 20 mg PO DAILY 30 caps 0RF dextroamphetamine-amphetamine 10 mg (Adderall) Partial Fill upon patient request. 10 mg PO DAILY 30 tabs 0RF Discontinued dextroamphetamine-amphetamine 20 mg (Adderall) Partial Fill upon patient request. Discontinued Reason: Doctor's Order 20 mg PO BID 60 tabs 0RF Orders: Orders ECG 12 lead EKG Today F90.2 - Attention-deficit hyperactivity disorder, combin ed type, R00.0 - Tachycardia, unspecified Counseling and coordination of Care Pt. Self Management counseling: Mod caffeine/ETOH intake, Nutrition education and improvement, Sleep hygiene and General coping skills Medication management counseling: Effectiveness, Side effects, Dosing range, Duration, Drug interaction and Adherence Diagnosis and Prognosis Counseling: Accuracy of diagnosis, Prognosis over time and Adequacy of current interventions Details: I spent [] minutes reviewing the record, seeing the patient and documenting in the medical record. Counseling provided to the patient/caregiver as outlined below. Addressed patient/caregiver concerns regarding current medication regime including effective adherence. Addressed patient/caregiver concerns regarding diagnosis and prognosis including accuracy of diagnosis, prognosis over time, impact of diagnosis. Addressed patient/caregiver concerns regarding impact of recent stressors. [facility] Medical History ADHD (attention deficit hyperactivity disorder), combined type Vitamin D deficiency Reactive airway disease Morbid obesity with BMI of 45.0-49.9, adult Allergic rhinitis Anxiety Surgical History History of lumbar laminectomy for spinal cord decompression Hx of tonsillectomy No pertinent past surgical history Family History Father FH: mental illness Brother FH: mental illness Other Brain cancer Diabetes Hypertension Skin cancer Substance abuse Social History Housing: House Alcohol intake: never Patient Tobacco Use Status: Former Tobacco user e-Cigarette/Vaping Use: Currently Using Second Hand Smoke Exposure: Yes Substance Use Type: Marijuana service: No Current occupational status: employed and unemployed Current occupational exposures/hazards: No Cognitive needs: No Hearing needs: No Vision needs: No Social History: lives with and 2 yo child Substance History: THC in evenings; no other substance use including etoh Trauma History: yes childhood Coding Level of Care Code Est Pt Level 4 (74956) Diagnoses ADHD (attention deficit hyperactivity disorder), combined type F90.2
== END 2025-01-25 16:11 | disposition home or self-care (01) ==
LOC: HO.HOP 15:35
PROVIDERS: PCP Internal Medicine; Visit Provider Clinical Nurse Specialist Psychiatric/Mental Health
DX: F90.2 Attention-deficit hyperactivity disorder, combined type (principal)
CPT/HCPCS: 99214

== ENCOUNTER → 2025-01-25 15:35 | Outpatient (BNVA) | payer OTHER, SELFPAY | PROVIDERS: PCP Internal Medicine; Visit Provider Clinical Nurse Specialist Psychiatric/Mental Health | DX: F90.2 Attention-deficit hyperactivity disorder, combined type (principal) | CPT/HCPCS: 99212 ==

== ENCOUNTER 2025-02-16 16:38 | Outpatient (AMB) | payer OTHER, SELFPAY ==
--- NOTE | 2025-02-16 16:43 | A.OFFPC_ITS ---
Vital Signs 02/16/25 16:44 Height 5 ft 7.75 in Weight 281 lb 4 oz BMI 43.1 BP 122/76 Blood Pressure Location Lt brachial Position Sitting Pulse 98 Pulse Source Pulse Oximeter Pulse Oximetry (%) 99 Oxygen Delivery Method Room Air Intake Visit Reasons: 6 Months f/u Supercharger Mechanic Required: No Accompanied by: Self / Same As Patient Allergies prednisone Allergy (Intermediate, Verified 02/16/25 16:56) Itching Medication List - Last Reconciled 02/16/25 by Robinson Banerjee MD cetirizine 10 mg PO DAILY PRN 90 days cholecalciferol (vitamin D3) 50 mcg PO DAILY 90 days clonidine HCl 0.2 mg (2 x 0.1 mg) PO BEDTIME clotrimazole-betamethasone 1-0.05 % 1 appl topical BID 5 days dextroamphetamine-amphetamine 10 mg (Adderall) 10 mg PO DAILY dextroamphetamine-amphetamine 20 mg ER (Adderall XR) 20 mg PO DAILY levonorgestrel (Mirena) intrauterine saffron extract 2 to 4 tablets orally daily; Ventolin HFA 90 mcg/actuation (albuterol sulfate) 2 puffs inhalation Q6H PRN 30 days NS Tobacco use date assessed: 02/16/25 Dental Screening Dental Screen Date: 02/16/25 Did you have a dental visit in the last 12 months?: No Did you have a dental problem in the last 6 months where you did not have access to dental care?: No Was dental information given to patient?: No HPI 6 Months f/u HPI Details Patient comes in today for her follow-up visit States that she feels okay She has lost about 15 lb since her last visit earlier this year through diet and exercise She denies any headaches or dizziness Denies any chest pains, no shortness of breath No nausea/vomiting, no abdominal pain No change in bowel habits noted He is also inquiring as to what she needs to do to get tested for possible Daly-Danlos syndrome - states that both she and her mother have several symptoms over the years that is now making her suspect that she may have Daly- Danlos and would like to get tested mostly for her daughter's sake PFSH Medical History (Updated 02/18/25 @ 17:25 by Robinson Banerjee MD) Morbid obesity with BMI of 40.0-44.9, adult ADHD (attention deficit hyperactivity disorder), combined type Vitamin D deficiency Reactive airway disease Morbid obesity with BMI of 45.0-49.9, adult Allergic rhinitis Anxiety Surgical History History of lumbar laminectomy for spinal cord decompression Hx of tonsillectomy No pertinent past surgical history Family History Father FH: mental illness Brother FH: mental illness Other Brain cancer Diabetes Hypertension Skin cancer Substance abuse Social History Housing: House Alcohol intake: never Patient Tobacco Use Status: Former Tobacco user e-Cigarette/Vaping Use: Currently Using Second Hand Smoke Exposure: Yes Substance Use Type: Marijuana service: No Current occupational status: employed and unemployed Current occupational exposures/hazards: No Cognitive needs: No Hearing needs: No Vision needs: No Female Reproductive History Menstrual Age of Menarche: 10 Questionnaire PHQ-9 Over the last 2 weeks, how often have you been bothered by any of the following problems? Depression Screening Interpretation: Positive Depression Screening Follow-up: Existing condition and In treatment Depression Screening Done: Yes Source: Developed by Drs. Boris Graf, Manisha Cardenas, Devon Cobian and colleagues, with an educational bambi from [employer]. Thrive Questionnaire Date Thrive assessed: 02/16/25 I am a: Patient What is your living situation today?: I have a steady place to live Within the past 12 months, did the food you bought not last and you didn't have the money to get more?: Sometimes True Within the past 12 months, did you worry whether your food would run out before you got money to buy more?: I choose not to answer this question Do you have trouble paying for medicines?: No Do you have trouble getting transportation to medical appointments?: Yes Do you have trouble paying your heating and electricity bill?: Yes Do you have trouble taking care of your child, family member or friend?: No Do you have trouble with day-to-day activities such as bathing, preparing meals, shopping, managing finances, etc.?: No Are you currently unemployed and looking for a job?: No Are you interested in more education?: No Please select the resources that you would like help with: Transportation Currently or been in a relationship where the following occur: No concerns reported THRIVE Score: 3 TAWNY-7 AMB Questionnaire TAWNY-7 Date TAWNY - 7 assessed: 02/16/25 Source: Developed by Drs. Boris Graf, Manisha Cardenas, Devon Cobian and colleagues, with an educational bambi from [employer]. Review of Systems Const Denies chills, Denies fatigue, Denies fever(s) and Denies headache(s) ENT Denies dysphagia, Denies dizziness, Denies otalgia, Denies headache(s), Denies neck pain, Denies odynophagia and Denies sore throat Card Denies chest pain, Denies rapid heart rate, Denies irregular heart rhythm, Denies palpitations and Denies dyspnea Resp Denies chest congestion, Denies cough and Denies dyspnea GI Denies abdominal pain, Denies constipation, Denies dysphagia, Denies heartburn, Denies diarrhea, Denies nausea, Denies odynophagia and Denies vomiting Denies urinary frequency, Denies dysuria and Denies urinary urgency Musc Denies back pain, Denies arthralgias and Denies neck pain Skin/Breast Denies rash Neuro Denies dizziness, Denies headache(s) and Denies paresthesias Psych Denies anxiety, Denies depression and Denies difficulty concentrating (current Rx helping) Endo Denies fatigue and Denies palpitations Amado/Lymph Denies easy bruising Physical exam (Primary Care) Vital Signs: Last Vital Signs Pulse 98 02/16/25 16:44 BP 122/76 02/16/25 16:44 Pulse Ox 99 02/16/25 16:44 Oxygen Delivery Method Room Air 02/16/25 16:44 BMI result Body Mass Index 43.1 Tobacco/Smoking Status: Tobacco use Status Tobacco use date assessed 02/16/25 02/16/25 16:50 Patient Tobacco Use Status Former Tobacco user 02/16/25 16:50 e-Cigarette/Vaping Use Currently Using 02/16/25 16:50 Depression Screening Interpretation: Positive Depression Screening Follow-up: Existing condition and In treatment Thrive Assessment: Date of Thrive Assessment Date Thrive assessed 02/16/25 02/16/25 16:50 Currently or been in a relationship where the following occur: No concerns reported Const General: no acute distress and alert HENMT Ears: TM's normal bilaterally and EAC's normal Throat: Yes posterior oropharynx normal and Yes tonsils normal (no TP congestio n) Neck Neck: Yes supple and No lymphadenopathy Thyroid: Thyroid normal Resp Auscultation: clear to auscultation bilaterally, no rales and no wheezes Cardio Rate: regular rate Rhythm: regular rhythm Heart sounds: no murmurs GI Palpation (GI): Soft to palpation and nontender Auscultation: normal bowel sounds General: Yes no CVA tenderness Back/Spine/Pelvis Back: no CVA tenderness Thoracic/Lumbar Spine: No lumbar spinal tenderness Skin Rashes: no rashes Extrem General: Yes no clubbing, cyanosis or edema Coding Level of Care Code Est Pt Level 4 (83006) Diagnoses Mild intermittent reactive airway disease without complication J45.20 Asthma complication type: uncomplicated Asthma persistence: intermittent Asthma severity: mild Allergic rhinitis, unspecified seasonality, unspecified trigger J30.9 Allergic rhinitis seasonality: unspecified Allergic rhinitis trigger: unspecified Hypermobility of joint M24.9 Vitamin D deficiency E55.9 Insomnia, unspecified type G47.00 Insomnia type: unspecified ADHD (attention deficit hyperactivity disorder), combined type F90.2 Morbid obesity with BMI of 40.0-44.9, adult E66.01; Z68.41 Assessment & Plan Assessment & Plan (1) Reactive airway disease: Code(s): J45.909 - Unspecified asthma, uncomplicated Category: Medical Qualifiers: Asthma complication type: uncomplicated Asthma persistence: intermittent Asthma severity: mild Qualified Code(s): J45.20 - Mild intermittent asthma, uncomplicated Plan: Controlled Continue Albuterol HFA 1 to 2 inhalations Q 6 hours PRN (2) Allergic rhinitis: Code(s): J30.9 - Allergic rhinitis, unspecified Category: Medical Qualifiers: Allergic rhinitis seasonality: unspecified Allergic rhinitis trigger: unspecified Qualified Code(s): J30.9 - Allergic rhinitis, unspecified Plan: Continue Cetirizine 10 mg QD PRN (3) Hypermobility of joint: Code(s): M24.9 - Joint derangement, unspecified Category: Medical Plan: Have discussed with patient that hypermobility alone does not automatically mean that she has Daly-Danlos syndrome she would need to have several other criteria as before a diagnosis of Daly-Danlos syndrome can be made Will go ahead and refer her to the Genetics Department at [facility] for further evaluation and to discuss these further (4) Vitamin D deficiency: Code(s): E55.9 - Vitamin D deficiency, unspecified Category: Medical Plan: Continue Vitamin D3 2000 units QD (5) Insomnia: Code(s): G47.00 - Insomnia, unspecified Category: Medical Qualifiers: Insomnia type: unspecified Qualified Code(s): G47.00 - Insomnia, unspecified Plan: Sleep hygiene reinforced She is currently being tried on Clonidine 0.2 mg Q HS by Anna Adame to see if this helps or not (6) ADHD (attention deficit hyperactivity disorder), combined type: Code(s): F90.2 - Attention-deficit hyperactivity disorder, combined type Category: Medical Plan: Continue Adderall XR 20 mg QD and Adderall IR 10 mg QD She has reportedly been tried on multiple other medications/mood agents in the past with either inadequate results or negative reactions (Sertraline- agitation; Abilify - increased anger; Depakote - sedation; Seroquel - ineffective; Hydroxyzine - ineffective; Risperdal - irritable) Follow-up with psychiatry as scheduled (7) Morbid obesity with BMI of 40.0-44.9, adult: Code(s): E66.01 - Morbid (severe) obesity due to excess calories; Z68.41 - Body mass index [BMI] 40.0-44.9, adult Category: Medical Plan: Reinforced diet/exercise as tolerated/lose weight - she has been able to lose some more weight 9about 15 pounds) since her last visit and is encouraged to continue Plan To return in 6 months for her next annual physical examination Orders: Orders Complete Blood Count Auto Diff 6 Months D64.9 - Anemia, unspecified, Z00.00 - Encounter for general adult medical examination without abnormal findings Comprehensive [place]. Panel Fast 6 Months E78.00 - Pure hypercholesterolemia, unspecified, Z00.00 - Encounter for general adult medical examination without abnormal findings Lipid Panel 6 Months E78.00 - Pure hypercholesterolemia, unspecified, Z00.00 - Encounter for general adult medical examination without abnormal findings TSH reflex Free T4 6 Months E78.00 - Pure hypercholesterolemia, unspecified, Z00.00 - Encounter for general adult medical examination without abnormal findings UA CC w/rflx Micro + Cult 6 Months R30.0 - Dysuria, Z00.00 - Encounter for general adult medical examination without abnormal findings Vitamin D 25-OH Total 6 Months E55.9 - Vitamin D deficiency, unspecified, Z00.00 - Encounter for general adult medical examination without abnormal findings Referrals Genetics Referral M24.80 - Other specific joint derangements of unspecified joint, not elsewhere classified
[2025-02-16 16:44] VITALS: BP 122/76; PULSE 98; O2SAT 99; BMI 43.1
== END 2025-02-16 17:11 | disposition home or self-care (01) ==
LOC: HO.HMCH 16:39
PROVIDERS: PCP Internal Medicine; Visit Provider Internal Medicine
DX: J45.20 Mild intermittent asthma, uncomplicated (principal); J30.9 Allergic rhinitis, unspecified; E66.01 Morbid (severe) obesity due to excess calories; Z68.41 Body mass index [BMI] 40.0-44.9, adult; M24.9 Joint derangement, unspecified; E55.9 Vitamin D deficiency, unspecified; F90.2 Attention-deficit hyperactivity disorder, combined type; G47.00 Insomnia, unspecified

== ENCOUNTER → 2025-02-16 16:38 | Outpatient (BNVA) | payer OTHER, SELFPAY | PROVIDERS: PCP Internal Medicine; Visit Provider Internal Medicine | DX: J45.20 Mild intermittent asthma, uncomplicated (principal); J30.9 Allergic rhinitis, unspecified; M24.9 Joint derangement, unspecified; E55.9 Vitamin D deficiency, unspecified; G47.00 Insomnia, unspecified; F90.2 Attention-deficit hyperactivity disorder, combined type; E66.01 Morbid (severe) obesity due to excess calories; D64.9 Anemia, unspecified; E78.00 Pure hypercholesterolemia, unspecified; R30.0 Dysuria; M24.80 Other specific joint derangements of unspecified joint, not elsewhere classified; Z68.41 Body mass index [BMI] 40.0-44.9, adult | CPT/HCPCS: 99212 ==

== ENCOUNTER 2025-02-19 13:43 | Outpatient (AMB) | payer OTHER, SELFPAY ==
--- NOTE | 2025-02-19 13:05 | A.OFFPSYCH_ITS ---
Intake Intake Visit Reasons: follow up Cryptographic Clerk Required: No Allergies prednisone Allergy (Intermediate, Verified 02/16/25 16:56) Itching Medication List - Last Reconciled 02/19/25 by Zoila Adame APRN cetirizine 10 mg PO DAILY PRN 90 days cholecalciferol (vitamin D3) 50 mcg PO DAILY 90 days clonidine HCl 0.2 mg (2 x 0.1 mg) PO BEDTIME clotrimazole-betamethasone 1-0.05 % 1 appl topical BID 5 days dextroamphetamine-amphetamine 10 mg (Adderall) 10 mg PO DAILY dextroamphetamine-amphetamine 20 mg ER (Adderall XR) 20 mg PO DAILY levonorgestrel (Mirena) intrauterine saffron extract 2 to 4 tablets orally daily; Ventolin HFA 90 mcg/actuation (albuterol sulfate) 2 puffs inhalation Q6H PRN 30 days NS HPI- Psychiatric Chief Complaint: follow up HPI Narrative: pt reports adderall IR at 6am and adderall xr at 10 am is very helpful; she is functioning well; she is less anxious; she has established new routines which help; She has had no palpitations, SOB, or chest pain; she is exercising, she is eating 3 meals a day. she report stable good mood; no SI or HI;focus and attention much more consistent. Past Psychiatric History: In and out of therapy her whole life- she says most of the time the focus was on her brother and mother who had high needs; Pt IPLOC 3-4 times in [place] in teens. Pt tried to commit suicide at age 12 by cutting wrists and recalls being told she was attention seeking; at age 14 she overdosed on melatonin. NOTE: father by overdose when pt was 13 or 14 yrs old. Pt says she tried to overdose 2-3 more times between 14 and 16 to . at 17 yo pt checked herself into a psychiatric hospital due to SI. She reports being on several meds in the past and had negative reactions sertraline- agitation hydrozyibe - ineffective abilify= increased anger riperdal- can't recall depakote- helped a little but sleepy seroquel - ineffective Subjective Subjective Subjective Medication Compliance: Yes Side effects from medications: No Review of Systems Medical Review of Systems: unchanged Mental Status Exam Mental Status Exam Patient Appearance: Well Grooomed and Appropriate Patient Orientation: Person, Place, Time and Situation Level of Consciousness: Awake and Appropriate Patient Behavior: Appropriate and Talkative Mood Description: Cheerful Affect Description: Cheerful Patient Cognition Impaired: No Ability to Follow Directions: Good Speech Pattern: Clear, Appropriate and Excessive Memory Description: Intact Hallucinations: None Delusions: Not Present Thought Process: Intact, Distracted and Goal Oriented Thought Content: positive for Intact, positive for Goal Oriented and positive for Loose Associations Judgement: Good Telehealth Telehealth Telehealth Platform: Other (please specify) ([employer]) Location of provider rendering services: practice address Location of patient: address on file Patient Identification confirmed using: Name, : Yes Telehealth method: video Patient verbally consented to treatment: Yes Patient verbally consented to billing insurance company: Yes Patient informed of any privacy concerns related to visit: Yes Minutes spent on Phone/Video with Pt.: 30 Assessment and Plan Assessment & Plan (1) ADHD (attention deficit hyperactivity disorder), combined type: Status: Acute Code(s): F90.2 - Attention-deficit hyperactivity disorder, combined type Plan take adderall 10 mg Q5am take adderrall XR at 1030 am Medications: Changed From dextroamphetamine-amphetamine 10 mg (Adderall) Partial Fill upon patient request. 10 mg PO DAILY 30 tabs 0RF To dextroamphetamine-amphetamine 10 mg (Adderall) Partial Fill upon patient request. 15 mg (1.5 x 10 mg) PO DAILY 45 tabs 0RF Refilled dextroamphetamine-amphetamine 20 mg ER (Adderall XR) Partial Fill upon patient request. 20 mg PO DAILY 30 caps 0RF Counseling and coordination of Care Pt. Self Management counseling: Mod caffeine/ETOH intake, Nutrition education and improvement, Sleep hygiene and General coping skills Medication management counseling: Effectiveness, Side effects, Dosing range, Duration, Drug interaction and Adherence Diagnosis and Prognosis Counseling: Accuracy of diagnosis, Prognosis over time and Adequacy of current interventions Details: I spent 40 minutes reviewing the record, seeing the patient and documenting in the medical record. Counseling provided to the patient/caregiver as outlined below. Addressed patient/caregiver concerns regarding current medication regime including effective adherence. Addressed patient/caregiver concerns regarding diagnosis and prognosis including accuracy of diagnosis, prognosis over time, impact of diagnosis. Addressed patient/caregiver concerns regarding impact of recent stressors. [facility], [facility] Medical History (Updated 02/18/25 @ 17:25 by Robinson Banerjee MD) Morbid obesity with BMI of 40.0-44.9, adult ADHD (attention deficit hyperactivity disorder), combined type Vitamin D deficiency Reactive airway disease Morbid obesity with BMI of 45.0-49.9, adult Allergic rhinitis Anxiety Surgical History History of lumbar laminectomy for spinal cord decompression Hx of tonsillectomy No pertinent past surgical history Family History Father FH: mental illness Brother FH: mental illness Other Brain cancer Diabetes Hypertension Skin cancer Substance abuse Social History Housing: House Alcohol intake: never Patient Tobacco Use Status: Former Tobacco user e-Cigarette/Vaping Use: Currently Using Second Hand Smoke Exposure: Yes Substance Use Type: Marijuana service: No Current occupational status: employed and unemployed Current occupational exposures/hazards: No Cognitive needs: No Hearing needs: No Vision needs: No Social History: lives with and 2 yo child Substance History: THC in evenings; no other substance use including etoh Trauma History: yes childhood Coding Level of Care Code Tele Est Pt Level 4 (97821) Diagnoses ADHD (attention deficit hyperactivity disorder), combined type F90.2
== END 2025-02-19 13:44 | disposition home or self-care (01) ==
LOC: HO.HOP 13:43
PROVIDERS: PCP Internal Medicine; Visit Provider Clinical Nurse Specialist Psychiatric/Mental Health
DX: F90.2 Attention-deficit hyperactivity disorder, combined type (principal)
CPT/HCPCS: 99214

== ENCOUNTER 2025-05-21 15:35 | Outpatient (AMB) | payer OTHER, SELFPAY ==
--- OUTSIDE RECORDS SUMMARY | 2019-08-29 12:14 | XMS_ITS | Encounter Summary ---
Author Organization [facility] Address [address] [place] [address] Phone Care Team Providers Care Breast Splitter Name Role Phone Charlie Ventura MD Primary Care Provider Encounter Details Date Type Department Care Team (Late st Contact Info) Description 08/29/2019 12:14 PM EST Hospital Encounter [facility] [address] [place] [id number] Karrie Saldivar, [facility] [address], [address] [place] [address] [email or web address] Social History Tobacco Use Types Packs/Day Years Used Date Smoking Tobacco: Never Smokeless Tobacco: Never Alcohol Use Standard Drinks/Week Comments Not Currently 0 (1 standard drink = 0.6 oz pur e alcohol) occasionally Education Answer Date Recorded Are you interested in more education? Not on brayden e 11/06/2022 Are you concerned about learning? Not on file 11/06/2022 No 11/06/2022 No 11/06/2022 Digital Access Answer Date Recorded No 12/05/2022 No 12/05/2022 Reliable internet access at home? Not on file 12/05/2022 Device with a working camera? Not on file Comments Yes Sex and Gender Information Value Date Recorded Sex Assigned at Female 08/06/2019 8:51 PM EST Legal Sex Female 8:35 PM EST Gender Identity Female 08/06/2019 8:51 PM EST Sexual Orientation Not on file documented as of this encounter Plan of Treatment Not on file documented as of this encounter Procedures Procedure Name Priority Date/Time Associated Diagnosis Comments XR ANKLE 3 OR MORE VIEWS (LEFT) Urgent/patient waiting 08/29/2019 12:21 PM EST Acute left ankle pain documented in this encounter Results * XR ANKLE 3 OR MORE VIEWS (LEFT) (08/29/2019 12:21 PM EST) Anatomical Region Laterality Modality Ankle Left Radiographic Iman ging 08/29/2019 12:4 5 PM EST Impressions 08/29/2019 12:51 PM EST Osteochondral injury of the medial left talar dome. This can be further evaluated with MRI. Medial ankle soft tissue swelling. POS [id number] Narrative 08/29/2019 12:51 PM EST XR ANKLE 3 OR MORE VIEWS (LEFT) CLINICAL HISTORY: *Ankle pain, initial exam r/o fracture: positive Terrell Rule, pain in the lateral and medial malleolus. COMPARISON: None FINDINGS: Bones and Joints: There is a 10 mm lucency subjacent to the articular surface of the medial left talar dome. Surrounding sclerosis is noted. Soft tissues: The soft tissues are normal. No radiopaque foreign body. Procedure Note Júnior Patel MD - 08/29/2019 XR ANKLE 3 OR MORE VIEWS (LEFT) CLINICAL HISTORY: *Ankle pain, initial exam r/o fracture: positive Terrell Rule, pain in the lateral and medialmalleolus. COMPARISON: None FINDINGS: Bones and Joints: There is a 10 mm lucency subjacent to the articularsurface of the medial left talar dome. Surrounding sclerosis is noted. Soft tissues: The soft tissues are normal. No radiopaque foreign body. IMPRESSION: Osteochondral injury of the medial left talar dome. This can be furtherevaluated with MRI. Medial ankle soft tissue swelling. POS [id number] Karrie Saldivar TAG WRITER IMG XR LOWER EXTREMITY F inal Result documented in this encounter Visit Diagnoses Not on filedocumented in this encounter Care Teams Breast Splitter Relationship Specialty Start Date End Date Charlie Ventura MD PCP - General Internal Medicine 08/06/19 01/09/24 documented as of this encounter Additional Source Comments The information contained in this document represents components of the legal health record. It is not the complete legal health record.[facility]
--- NOTE | 2025-05-21 13:03 | A.OFFPSYCH_ITS ---
Intake Intake Visit Reasons: follow up Mental Hygiene Consultant Required: No Allergies prednisone Allergy (Intermediate, Verified 02/16/25 16:56) Itching Medication List - Last Reconciled 05/21/25 by Zoila Adame APRN cetirizine 10 mg PO DAILY PRN 90 days cholecalciferol (vitamin D3) 50 mcg PO DAILY 90 days clonidine HCl 0.2 mg (2 x 0.1 mg) PO BEDTIME clotrimazole-betamethasone 1-0.05 % 1 appl topical BID 5 days dextroamphetamine-amphetamine 10 mg (Adderall) 15 mg (1.5 x 10 mg) PO DAILY dextroamphetamine-amphetamine 20 mg ER (Adderall XR) 20 mg PO DAILY levonorgestrel (Mirena) intrauterine saffron extract 2 to 4 tablets orally daily; Ventolin HFA 90 mcg/actuation (albuterol sulfate) 2 puffs inhalation Q6H PRN 30 days NS HPI- Psychiatric Chief Complaint: follow up HPI Narrative: pt seen via telehealth for follow up re: ADHD. Pt reports she stopped taking the adderall because she found out she is ; she is struggling with ADJD symptoms but she is adamant about not taking meds while ; she has good family support. she is coping well. she is exercising, she is eating 3 meals a day. she report stable good mood; no SI or HI. She deos plan to resume meds in future. Past Psychiatric History: In and out of therapy her whole life- she says most of the time the focus was on her brother and mother who had high needs; Pt IPLOC 3-4 times in [place] in teens. Pt tried to commit suicide at age 12 by cutting wrists and recalls being told she was attention seeking; at age 14 she overdosed on melatonin. NOTE: father by overdose when pt was 13 or 14 yrs old. Pt says she tried to overdose 2-3 more times between 14 and 16 to . at 17 yo pt checked herself into a psychiatric hospital due to SI. She reports being on several meds in the past and had negative reactions sertraline- agitation hydrozyibe - ineffective abilify= increased anger riperdal- can't recall depakote- helped a little but sleepy seroquel - ineffective Subjective Subjective Medication Compliance: Yes Side effects from medications: No Review of Systems Medical Review of Systems: unchanged Mental Status Exam Mental Status Exam Patient Appearance: Well Grooomed and Appropriate Patient Orientation: Person, Place, Time and Situation Level of Consciousness: Awake and Appropriate Patient Behavior: Appropriate and Talkative Mood Description: Cheerful Affect Description: Cheerful Patient Cognition Impaired: No Ability to Follow Directions: Good Speech Pattern: Clear, Appropriate and Excessive Memory Description: Intact Hallucinations: None Delusions: Not Present Thought Process: Intact, Distracted and Goal Oriented Thought Content: positive for Intact, positive for Goal Oriented and positive for Loose Associations Judgement: Good Assessment and Plan Assessment & Plan (1) ADHD (attention deficit hyperactivity disorder), combined type: Status: Acute Code(s): F90.2 - Attention-deficit hyperactivity disorder, combined type Plan stop adderall 10 mg Q5am stop adderrall XR at 1030 am retrun for follow up in 1 year at pt request call office sooner if needed Counseling and coordination of Care Pt. Self Management counseling: Mod caffeine/ETOH intake, Nutrition education and improvement, Sleep hygiene and General coping skills Medication management counseling: Effectiveness, Side effects, Dosing range, Duration, Drug interaction and Adherence Diagnosis and Prognosis Counseling: Accuracy of diagnosis, Prognosis over time and Adequacy of current interventions Details: I spent 35 minutes reviewing the record, seeing the patient and documenting in the medical record. Counseling provided to the patient/caregiver as outlined below. Addressed patient/caregiver concerns regarding current medication regime including effective adherence. Addressed patient/caregiver concerns regarding diagnosis and prognosis including accuracy of diagnosis, prognosis over time, impact of diagnosis. Addressed patient/caregiver concerns regarding impact of recent stressors. [facility] Medical History (Updated 02/18/25 @ 17:25 by Robinson Banerjee MD) Morbid obesity with BMI of 40.0-44.9, adult ADHD (attention deficit hyperactivity disorder), combined type Vitamin D deficiency Reactive airway disease Morbid obesity with BMI of 45.0-49.9, adult Allergic rhinitis Anxiety Surgical History History of lumbar laminectomy for spinal cord decompression Hx of tonsillectomy No pertinent past surgical history Family History Father FH: mental illness Brother FH: mental illness Other Brain cancer Diabetes Hypertension Skin cancer Substance abuse Social History Housing: House Alcohol intake: never Patient Tobacco Use Status: Former Tobacco user e-Cigarette/Vaping Use: Currently Using Second Hand Smoke Exposure: Yes Substance Use Type: Marijuana service: No Current occupational status: employed and unemployed Current occupational exposures/hazards: No Cognitive needs: No Hearing needs: No Vision needs: No Social History: lives with and 2 yo child Substance History: THC in evenings; no other substance use including etoh Trauma History: yes childhood Coding Level of Care Code Est Pt Level 4 (79404) Diagnoses ADHD (attention deficit hyperactivity disorder), combined type F90.2
--- OUTSIDE RECORDS SUMMARY | 2025-05-21 17:40 | XMS_ITS | Clinical Summary ---
Author Organization [facility] Address [address] [place] [id number] Phone Care Team Providers Care Salesperson Household Appliances Name Role Phone Robinson Banerjee MD Primary Care Provider [phone] Allergies Active Allergy Reactions Criticality Noted Date Comments Morphine Itching 06/15/2018 Ok with hydromorphine Prednisone 08/06/2019 Medications carbidopa/levodo pa (SINEMET ORAL) Take by mouth. Activ e albuterol 90 mcg/actuation inhaler Inhale 2 puffs into the lungs every 4 (four) hours. 1 Inhaler 08/06/19 20 Active levothyroxine (SYNTHROID, LEVOTHROID) 50 MCG tablet Take 50 mcg by mouth. 08/03/19 20 Active amitriptyline (ELAVIL) 25 MG tablet Take 25 mg by mouth. 08/03/19 20 Active albuterol (PROAIR HFA) 90 mcg/actuation inhaler Inhale 2 puffs into the lungs. 02/02/20 19 Active gabapentin (NEURONTIN) 300 MG capsule 08/03/19 20 Active dicyclomine (BENTYL) 10 MG capsule Take 10 mg by mouth. 04/12/20 19 Active fluticasone propionate (FLOVENT HFA) 110 mcg/actuation inhaler Inhale 110 mcg into the lungs. 06/15/20 18 Active ASCORBIC ACID, VITAMIN C, ORAL Take by mouth. Active loratadine (CLARITIN) 10 mg tablet Take 10 mg by mouth daily. Active cholecalciferol (VITAMIN D3) 2,000 unit capsule Take 1 capsule by mouth every morning. 11/22/19 24 Active neomycin-polymyx in B-hydrocortisone (CORTOMYCIN) 3.5-10,000-1 mg/mL-unit/mL-% otic suspension Place 4 drops into the right ear 4 (four) times a day. 10 mL 05/01/20 24 Active Additional Information Patient not taking.Reported on 05/02/2025 betamethasone dipropionate 0.05 % cream APPLY TO EARS EVERY DAY NEEDED FLARES, DECREASE USE SYMPTOMS IMPROVE 03/06/20 25 Active clindamycin (CLEOCIN T) 1 % gel APPLY TOPICALLY TO CYST TWICE A DAY NEEDED FOR FLARES 03/06/20 25 Active cetirizine (ZYRTEC) 10 MG tablet Take 10 mg by mouth daily. Active therapeutic multivitamin tablet Take 1 tablet by mouth daily. Active orlistat (XENICAL) 120 MG capsule Take 120 mg by mouth. 08/04/19 20 025 Discontin ued(No longer taking) diclofenac sodium (VOLTAREN) 75 MG EC tablet Take 75 mg by mouth. 11/24/19 025 Discontin ued(No longer taking) Active Problems Problem Noted Date Diagnosed Date Anxiety disorder 05/02/2025 Post traumatic stress disorder 05/02/2025 Diabetes mellitus 05/02/2025 Overview (05/02/2025): Andrew PCP Attention deficit hyperactivity disorder (ADHD) 05/02/2025 Overview (05/02/2025): no current therapist Hyperlipidemia 05/02/2025 Hypertension 05/02/2025 Overview (05/02/2025): [facility] - not on any medications, be monitored per pt Severe obesity 05/02/2025 Irritable bowel syndrome wit h both constipation and diarrhea 09/18/2019 Acquired hypothyroidism 11/29/2018 Vitamin D deficiency 11/29/2018 Asthma 06/15/2018 Overview (05/02/2025): albuterol PRN Comments Yes Encounters Date Type Department Care Team Description 05/02/2025 12:20 PM EDT Office Visit [facility] [address] [address] Ramona Doyle, MAILING MANAGER Amenorrhea (Primary Dx); state, incidental; Left anterior knee pain from Last 3 Months Immunizations Immunization Administration Dates Next Due Influenza Quadrivalent MDCK Preservative Free IM 06/18/2020 Pneumococcal polysaccharide PPSV23 03/27/2021 Tdap 12/16/2021,03/27/2021 Social History Tobacco Use Types Packs/Day Years Used Date Smoking Tobacco: Never Smokeless Tobacco: Never Tobacco Cessation:Counseling Given: Not Answered Alcohol Use Standard Drinks/Week Comments Not Currently [...] PM EST Sexual Orientation Not on file Last Filed Vital Signs Vital Sign Reading Time Taken Comments Blood Pressure 117/81 05/02/2025 2:41 PM EDT Pulse 78 05/02/2025 2:41 PM EDT Temperature 36.9 C (98.4 F) 05/02/2025 2:41 PM EDT Respiratory Rate 17 05/02/2025 2:41 PM EDT Oxygen Saturation 99% 05/02/2025 2:41 PM EDT Inhaled Oxygen Concentration - - Weight 181.4 kg (400 lb) 08/06/2019 8:49 PM EST Height 170.2 cm (5' 7 ) 08/29/2019 11:35 AM EST Body Mass Index 62.65 08/06/2019 8:49 PM EST Plan of Treatment Health Maintenance Due Date Last Done Comments HEMOGLOBIN A1C 1993 TSH LEVEL 1993 DEPRESSION SCREENING 2005 HEPATITIS C SCREENING 10/29/2011 HIV ONE-TIME SCREENING (18-6 5 YEARS) 10/29/2011 LIPID PANEL 10/29/2011 PAP SMEAR 2014 PNEUMOCOCCAL VACCINES (0-49 years) (2 of 2 - PCV) 03/27/2022 03/27/2021 INFLUENZA VACCINE (#1) 2025 06/18/2020 COVID-19 VACCINE (3 - 2024-2 6 season) 2025 12/16/2020, 11/25/2020 DIABETIC EYE EXAM 05/02/2025 URINE MICROALBUMIN/CREATININ E RATIO 05/02/2025 BLOOD PRESSURE 10/31/2025 05/02/2025 Adult Td,Tdap Booster 12/17/2031 12/16/2021 , 03/27/2021 RSV VACCINE (1 - 1-dose 75+ series) 2068 SMOKING STATUS SCREENING (On ce After 26 Yrs) Completed 05/02/2025 HEPATITIS A VACCINES Aged Out No long er eligible based on patient's age to complete this topic HIB VACCINES Aged Out No longer eligi ble based on patient's age to complete this topic IPV VACCINES Aged Out No longer eligi ble based on patient's age to complete this topic MENINGOCOCCAL VACCINES (ACWY) Aged Out No longer eligible based on patient's age to complete this topic MENINGOCOCCAL VACCINES (B) Aged Out N o longer eligible based on patient's age to complete this topic Medical Devices Not on file Procedures Procedure Name Priority Date/Time Associated Diagnosis Comments POCT URINE HCG Routine 05/02/2025 3:03 PM EDT Amenorrhea from Last 3 Months Results * (ABNORMAL) Poct Urine HCG (05/02/2025 3:03 PM EDT) HCG, urine Positive, Internal QCs acceptable(A ) Negative [facility] Other 05/02/2025 3:03 PM EDT Ramona Doyle MAILING MANAGER LAB POCT ENTER/EDIT ORDERAB LES Final Result [facility] [address] [address], [facility] [phone] from Last 3 Months Insurance [facility] [employer] A[employer] [facility] [employer] [place] [address] [place] [address] [place] [address] [facility] [employer] [place] [address] [place] [address] [facility] [employer] [facility] [address] [place], [place] [id number] [place], [place] [address]HEALTH Care Teams Salesperson Household Appliances Relationship Specialty Start Date End Date Robinson Banerjee MD [address] [place] [address] [place] [address] PCP - General Internal Medicine 01/10/24 Additional Source Comments The information contained in this document represents components of the legal health record. It is not the complete legal health record.[facility]
== END 2025-05-21 15:35 | disposition home or self-care (01) ==
LOC: HO.HOP 15:35
PROVIDERS: PCP Internal Medicine; Visit Provider Clinical Nurse Specialist Psychiatric/Mental Health
DX: F90.2 Attention-deficit hyperactivity disorder, combined type (principal)
CPT/HCPCS: 99214

== ENCOUNTER → 2025-05-21 15:35 | Outpatient (BNVA) | payer OTHER, SELFPAY | PROVIDERS: PCP Internal Medicine; Visit Provider Clinical Nurse Specialist Psychiatric/Mental Health | DX: F90.2 Attention-deficit hyperactivity disorder, combined type (principal); R00.0 Tachycardia, unspecified | CPT/HCPCS: 99212 ==